=== PATIENT | female | born 1940 ===

== ENCOUNTER → 2019-08-06 | Outpatient (CLI) | payer MEDICARE, BC, SELFPAY | PROVIDERS: Family Provider Family Medicine; Visit Provider Internal Medicine Medical Oncology | DX: Z08 Encounter for follow-up examination after completed treatment for malignant neoplasm (principal); Z85.3 Personal history of malignant neoplasm of breast; Z90.12 Acquired absence of left breast and nipple; Z92.3 Personal history of irradiation; Z92.23 Personal history of estrogen therapy | CPT/HCPCS: 77065; 80053; 85025; 99213 ==

== ENCOUNTER → 2020-07-09 11:01 | Outpatient (BNVA) | payer MEDICARE, BC, SELFPAY | PROVIDERS: Family Provider Family Medicine; PCP Family Medicine; Visit Provider Family Medicine | DX: E11.9 Type 2 diabetes mellitus without complications (principal); F41.9 Anxiety disorder, unspecified; I10 Essential (primary) hypertension | CPT/HCPCS: 80053; 83036; 85025 ==

== ENCOUNTER 2020-08-11 09:41 | Outpatient (CLI) | payer MEDICARE, BC, SELFPAY ==
--- NOTE | 2020-08-11 09:51 | MM_ITS ---
WS: [id number] RIGHT DIGITAL MAMMOGRAPHY WITH CAD CLINICAL INFORMATION: HX OF BREAST CA;LT MAST COMPARISON: TECHNIQUE: 3 views of the right breast were obtained. FINDINGS: The right breast is composed of heterogeneous fibroglandular density tissue, which can limit the dete ction of small underlying mass lesions. No suspicious focal mass, asymmetry, calcifications, or architectural distortion. No evidence of qian gnancy. A few punctate and vascular calcifications. MM/[place] [id number] IMPRESSION: BI-RADS: 2-Benign FOLLOW UP: 1 Year Follow-up Recommend return to annual diagnostic mammography.
[2020-08-11 10:13] LABS: Basophils # 0.1 10^3/uL (0.0-0.1); Basophils % 0.8 %; Eosinophils # 0.2 10^3/uL (0.0-0.8); Hematocrit 43.9 % (37.0-47.0); Hemoglobin 14.1 g/dL (11.5-15.3); Lymphocytes # 2.5 10^3/uL (0.8-4.8); Lymphocytes % 34.3 %; Mean Corpuscular HGB Conc 32.1 g/dL (30.0-36.0); Mean Corpuscular Hemoglobin 28.4 pg (28.0-34.0); Mean Corpuscular Volume 88.5 fL (81-99); Mean Platelet Volume 12.2 fL (7.4-10.4); Monocytes # 0.5 10^3/uL (0.2-0.9); Monocytes % 6.5 %; Neutrophils # 4.06 10^3/uL (1.8-7.7); Neutrophils % 55.1 %; Nucleated Red Blood Cells % 0 %; Platelet Count 176 10^3/cmm (130-400); Red Blood Count 4.96 10^6/uL (4.1-5.3); Red Cell Distribution Width 12.7 % (12.1-15.1); White Blood Count 7.4 10^3/uL (4.0-10.0)
[2020-08-11 10:32] LABS: Alanine Aminotransferase 21 U/L (0-33); Albumin Level 4.1 g/dL (3.5-5.2); Alkaline Phosphatase 70 IU/L (35-105); Anion Gap 16.5 (5-19); Aspartate Amino Transferase 20 U/L (0-32); Blood Urea Nitrogen 18 mg/dL (8-23); Calcium 9.9 mg/dL (8.5-10.5); Carbon Dioxide 30 mmol/L (22-29); Chloride 98 mmol/L (98-107); Globulin 2.7 g/dL (1.3-4.6); Glucose 339 mg/dL (65-115); Osmolality Calculated 305 mOsm/kg (285-295); Potassium 4.5 mmol/L (3.5-5.1); Sodium 140 mmol/L (136-145); Total Bilirubin 0.3 mg/dL (0.15-1.2); Total Protein 6.8 g/dL (6.6-8.7)
--- NOTE | 2020-08-15 16:16 | ONC FU_ITS ---
Dr. Villatoro Patient Follow-Up Note Patient: Lela Joaquin Unit #: [id number]: 1940 Dicatated By: Manuel Villatoro M.D.Date of Visit:Aug 11, 2020 Onc Med Follow-up/Prog Note Chief Complaint: Breast cancer. 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 She underwent left modified radical mastectomy in August of 2007. The primary tumor was at least 6 cm. There was involvement in 3 of 6 axillary lymph nodes. She did not want adjuvant chemotherapy, and she also declined prophylactic chest wall radiation. She had started adjuvant hormonal therapy with Femara, but it was stopped after short time due to side effects. Treatment was then changed to tamoxifen as of December 2007. It was stopped after completing 5 years of treatment. She had a yearly mammogram of the left breast on 02/16/2016. It showed increasing asymmetry and soft tissue in the central portion of the right breast. There was no architectural distortion noted and there were no suspicious calcifications. It was read as BI-RADS 0. She returned for additional mammogram imaging and ultrasound, which was read as BI-RADS 4C, high suspicion for malignancy. She underwent ultrasound directed biopsy on 04/19/2016. Pathology showed fibrocystic changes with blunt duct adenosis. There was no tumor or significant atypia identified. She continued on observation/expectant management. Her subsequent surveillance mammograms in April 2017 and in July 2018 were BI-RADS 2, benign, with yearly followup recommended. She has chronic back pain due to long-standing degenerative disease of the spine. This has severely restricted her activity. Her other medical illnesses include hypertension and type II diabetes. She also has chronic anxiety. Her other surgeries have been limited to removal of a benign lesion from the right breast in 1985 and a D&C in 1992. She is a nonsmoker. Family history significant in that a sister was also treated for breast cancer. She is seen for a scheduled visit. She has been feeling pretty good generally, though she still has very limited activity due to her headaches and low back pain. She also has been having issues with high blood sugar. Her medication was recently changed to Januvia, but she says her blood sugars have still been high. She has no other significant complaints. Medications: Januvia 1 Tablet (of 50 mg) Oral daily, Quinapril HCl 1 (40 mg) Tablet Oral daily, Triavil 1 (2-10 mg) Tablet at bedtime, Ziac 1 (10-6.25 mg) Tablet Oral daily Allergies: No Known Allergies. Vital Signs: Performed on Aug 11, 2020 11:21 Height - 68.00 in Weight - 213 lbs (LOW) BSA - 2.10 sq.m BMI - 32.39 (HIGH) Temperature - 96.5 F (LOW) Pulse - 73 /min Respiration - 18 /min BP - 162/82 mm(hg) (HIGH) O2 Sat - 95 % (LOW) Pain - 0 Fatigue - 0 Physical Examination: Constitutional - She has limited mobility, Eyes - Sclerae nonicteric. Conjunctivae clear, ENMT - No lesions noted in the oral cavity, Hematologic/Lymphatic - No cervical or clavicular adenopathy, Respiratory - Lungs are clear with good air movement bilaterally, Cardiovascular - Heart rhythm is regular. There is no murmur, gallop, or rub noted, Breasts - There are areas of cheloid formation in the right breast and in the left chest wall. The right breast shows no mass. There are other no lesions noted in the left chest wall. There is no axillary adenopathy noted, Abdomen - Soft. Liver and spleen are not enlarged. There is no abdominal mass or ascites noted and there is no inguinal adenopathy, Extremities - No edema, Neurologic - There are no focal neurologic deficits noted. Lab/Imaging: Test performed on Aug 11, 2020 10:06 Sodium 140 mmol/L Potassium 4.5 mmol/L Chloride 98 mmol/L CO2 30 mmol/L Anion Gap 16.5 BUN 18 mg/dL Creatinine 0.9 mg/dL Cr Clearance (Est) 79.84 mL/min Glucose 339 mg/dL Osmolality - Calculated 305 mOsm/kg Calcium 9.9 mg/dL Protein, Total 6.8 g/dL Albumin 4.1 g/dL Globulin 2.7 g/dL Bilirubin, Total 0.3 mg/dL ALT (SGPT) 21 U/L AST (SGOT) 20 U/L Alkaline Phosphatase 70 IU/L WBC 7.4 10 3/uL RBC 4.96 10 6/uL HGB 14.1 g/dL HCT 43.9 % MCV 88.5 fL MCH 28.4 pg MCHC 32.1 g/dL RDW 12.7 % Platelet Count 176 10 3/cmm MPV 12.2 fL Neutrophils 4.06 10 3/uL Lymphocytes 2.5 10 3/uL Monocytes 0.5 10 3/uL Eosinophils 0.2 10 3/uL Basophils 0.1 10 3/uL Neutrophil % 55.1 % Lymphocyte % 34.3 % Monocyte % 6.5 % Eosinophil % 3.0 % Basophils % 0.8 % NRBC % 0 % Historic Problem List: 1. Patient has grade 3 infiltrating ductal carcinoma the left breast, stage IIIA, ER/NY positive and HER-2/benji negative. Her treatment included left modified radical mastectomy in August 2007 followed by 5 years of adjuvant hormonal therapy with tamoxifen. She declined both chemotherapy and prophylactic chest wall radiation. Her other medical illnesses include: 2. Hypertension. 3. Type II diabetes. 3. Degenerative disease of the spine with chronic back pain. 4. Chronic anxiety. Problems Addressed with this Encounter and Plan: 1. Grade 3 infiltrating ductal carcinoma the left breast, stage IIIA, ER/NY positive and HER-2/benji negative. There has been no evidence of recurrence following left modified radical mastectomy in August 2007 and adjuvant hormonal therapy. She remains on observation/expectant management for the breast cancer. At this point she can just continue her regular follow-up with Dr. Navas. I will plan to see her again only as needed. 2. Abnormal mammogram. In April 2016 she underwent ultrasound directed biopsy of the right breast for a suspicious mammogram, but pathology was benign, and she continued on oservation/expectant management. Her subsequent surveillance mammograms have been BI-RADS 2, benign. She is aware that she needs to continue her yearly mammograms. Signed By: Manuel Villatoro M.D. <<Signature on File>>
== END 2020-08-11 09:42 | disposition home or self-care (01) ==
PROVIDERS: Family Provider Family Medicine; PCP Family Medicine; Visit Provider Internal Medicine Medical Oncology
DX: Z08 Encounter for follow-up examination after completed treatment for malignant neoplasm (principal); Z85.3 Personal history of malignant neoplasm of breast; I10 Essential (primary) hypertension; E11.9 Type 2 diabetes mellitus without complications; M19.90 Unspecified osteoarthritis, unspecified site; F41.9 Anxiety disorder, unspecified; Z90.12 Acquired absence of left breast and nipple; Z92.23 Personal history of estrogen therapy
CPT/HCPCS: 36415; 77065; 80053; 85025; G0463

== ENCOUNTER 2021-07-30 07:52 | Outpatient (CLI) | payer MEDICARE, BC, SELFPAY ==
--- NOTE | 2021-07-30 08:15 | CT_ITS ---
WS: [id number] CT HEAD TECHNIQUE: Noncontrast CT of the head obtained from the skullbase to the vertex. CLINICAL INFORMATION: left sided numbness/dysarthria COMPARISON: None. DLP: 1253.[address] scans at [facility] use at least one of these dose optimization techniques: automated e xposure control; mA and/or kV adjustment per patient size (includes targeted exams where dose is matc hed to clinical indication); or iterative reconstruction. FINDINGS: No evidence of intracranial hemorrhage or mass effect. Ventricular system and basal cisterns are kaufman nt. Mild small vessel changes with moderate parenchymal volume loss. No extra-axial fluid collections . No evidence of mass or mass effect. Normal mcintyre-white differentiation. Intracranial vascular calcif ication. Paranasal sinuses and mastoid air cells are well aerated. .Normal visualized soft tissues. CT/CT head wo con* [id number] IMPRESSION: 1. No evidence of intracranial hemorrhage or mass effect. 2. Mild small vessel changes. Moderate parenchymal volume loss. 3. No acute intracranial findings.
== END 2021-07-30 07:53 | disposition home or self-care (01) ==
PROVIDERS: PCP Family Medicine; Visit Provider Family Medicine
DX: I63.9 Cerebral infarction, unspecified (principal); R53.1 Weakness; R47.1 Dysarthria and anarthria
CPT/HCPCS: 70450

== ENCOUNTER → 2021-08-04 11:37 | Outpatient (BNVA) | payer MEDICARE, BC, SELFPAY | PROVIDERS: PCP Family Medicine; Visit Provider Family Medicine | DX: E11.9 Type 2 diabetes mellitus without complications (principal); I10 Essential (primary) hypertension | CPT/HCPCS: 80053; 83036; 85025 ==

== ENCOUNTER 2021-08-19 13:24 | Outpatient (CLI) | payer MEDICARE, BC, SELFPAY ==
--- NOTE | 2021-08-19 13:34 | MM_ITS ---
WS: [id number] RIGHT DIGITAL MAMMOGRAPHY WITH CAD CLINICAL INFORMATION: HX OF BREAST CA;LT MASTECTOMY HISTORY: History of left mastectomy COMPARISON: August 11, 2020, , . TECHNIQUE: 3 views of the right breast were obtained. FINDINGS: The right breast is composed of heterogeneous fibroglandular density tissue, which can limit the dete ction of small underlying mass lesions. A few incidental punctate calcifications. Vascular calcificat ion. Nodular right breast tissue with a few ovoid asymmetries is unchanged. No suspicious focal mass, asymmetry, calcifications, or architectural distortion. No evidence of qian gnancy. MM/[place] [id number] IMPRESSION: BI-RADS: 2-Benign FOLLOW UP: 1 Year Follow-up Recommend return to annual diagnostic mammography.
== END 2021-08-19 13:25 | disposition home or self-care (01) ==
PROVIDERS: PCP Family Medicine; Visit Provider Internal Medicine Medical Oncology
DX: Z85.3 Personal history of malignant neoplasm of breast (principal); Z90.12 Acquired absence of left breast and nipple
CPT/HCPCS: 77065

== ENCOUNTER 2021-12-11 16:53 | Emergency (ER) | payer MEDICARE, BC, OTHER, SELFPAY ==
[2021-12-11 18:00] VITALS: BP 120/82; PULSE 93; RESP 22; O2SAT 95
--- NOTE | 2021-12-11 18:17 | CTR_ITS ---
PROCEDURE INFORMATION: Exam: CT Head Without Contrast Exam date and time: 12/11/2021 6:35 PM Age: 81 years old Clinical indication: Numbness / parasthesia; Left; Patient HX: C/O AVILES, dizziness and L sided numbness; Additional info: Headache with left sided numbess TECHNIQUE: Imaging protocol: Computed tomography of the head without contrast. Radiation optimization: All CT scans at this facility use at least one of these dose optimization techniques: automated exposure control; mA and/or kV adjustment per patient size (includes targeted exams where dose is matched to clinical indication); or iterative reconstruction. COMPARISON: CT head wo con* [id number] 07/30/2021 8:19 AM RADIATION DOSE METRICS: Total DLP (mGy-cm): 811.51 FINDINGS: Brain: Small subacute to chronic changes are seen in the posterolateral right frontal lobe. Mild atrophy and mild white matter chronic microvascular changes are noted. No hemorrhage or midline shift. Cerebral ventricles: No ventriculomegaly. Paranasal sinuses: Visualized sinuses are unremarkable. No fluid levels. Mastoid air cells: Visualized mastoid air cells are well aerated. Bones/joints: Unremarkable. No acute fracture. Soft tissues: Unremarkable. 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 Consider MRI of the brain for further assessment.
--- NOTE | 2021-12-11 18:19 | ED_ITS ---
HPI - General Adult General: Chief complaint: General Medical Stated complaint: HEADACHE Time Seen by Provider: 12/11/21 18:07 Source: patient and family (Spouse) Mode of arrival: ambulatory Limitations: no limitations History of Present Illness: This patient comes to the emergency department because of subjective feeling of general weakness. She also relates that she has had headaches for what she thinks is approximately 50 years. She states that 6 months ago or so she developed what she perceives as subjective left facial and left hand numbness without any motor dysfunction. She had a CT scan at that time which showed no acute process. She states that she continues to have the numbness and she thinks its perhaps worse. She also relates that she is globally weak. She denies any fevers or chills. She denies any focal motor weakness. She denies any difficulty with speech. She denies change in vision, jaw claudication etc. She denies any fevers or chills chest pain shortness of breath. She states she takes antihypertensive medications. She denies history of diabetes (review of her chart reveals she has diabetes and her problem list however). she does not smoke tobacco or use alcohol. The headaches are described as generalized and associated was vague lancinating kinds of pains. She states that they bother her at night as well as during the day. She has never been treated for these headaches with any kind of medications. No recent acute illnesses. Associated symptoms: Reports headache(s); Deny chest pain, dyspnea, nausea, rash, palpitations or vomiting Review of Systems Const: Reports: fatigue; Denies: fever(s), chills, body aches, change in appetite or change in weight Eyes: Denies: change in vision, blurry vision or blind spots ENMT: Denies: throat pain or odynophagia Card: Reports: swelling of feet/ankles; Denies: chest pain, palpitations or irregular heart rhythm Resp: Denies: dyspnea, productive cough, non-productive cough or wheezing GI: Denies: abdominal pain, nausea or vomiting : Denies: flank pain, difficulty voiding, dysuria or urinary frequency Musc: Denies: neck pain, back pain, extremity pain or joint pain Skin/Breast: Denies: rash or pruritus Neuro: Reports: headache(s) and numbness in extremities; Denies: frequent falls, Slurred speech present or seizure-like activity Psych: Denies: anxiety Endo: Denies: polyuria or polydipsia Eric/Lymph: Denies: easy bruising or easy bleeding PFS ED PFSH: Medical History Anxiety Diabetes mellitus Hypertension Social History Smoking and tobacco status: never smoked Alcohol intake: never Physical Exam Narrative: EXAM NARRATIVE: She is alert no acute distress lying what appears to be comfortably on the examining bed. She makes good eye contact. Her speech is generally goal-directed. Her affect is somewhat flat however. Const: COMMON NORMALS: patient oriented x3 and alert GENERAL APPEARANCE: cooperative and comfortable HENMT: COMMON NORMALS: normocephalic and atraumatic HEAD & SCALP: normocephalic and atraumatic; no scalp tenderness and no Temporal artery tenderness present FACE & SINUS: normal facial exam; sinuses not nontender Eye: COMMON NORMALS: Equal, round and reactive pupils present, EOMs intact bilaterally and conjunctivae normal CONJUNCTIVA: Yes conjunctivae normal P UPIL: Yes Equal, round and reactive pupils present Neck/C-Spine: COMMON NORMALS: full ROM, no lymphadenopathy, supple, no meningeal signs and no JVD CERVICAL SPINE: Yes cervical ROM normal, No Cervical spine tenderness and No Paracervical muscle tenderness Chest: COMMONS NORMALS: normal inspection of the chest Resp: COMMON NORMALS: normal respiratory effort, No retractions, No use of accessory muscles and clear to auscultation bilaterally AUSCULTATION: clear to auscultation bilaterally Cardio: COMMON NORMALS: no JVD, regular rate, regular rhythm, No murmurs present (Cardio) and Peripheral pulses 2+ throughout RATE: regular rate RHYTHM: regular rhythm PERIPHERAL PULSES: Peripheral pulses 2+ throughout GI: COMMON NORMALS: Normal to inspection, nondistended, normoactive bowel sounds present and Soft to palpation PALPATION: Yes Soft to palpation : COMMON NORMALS: Yes no CVA tenderness BLADDER/KIDNEY EXAM: Yes no CVA tenderness Back/Pelvis: COMMON NORMALS: no CVA tenderness, thoracic and lumbar spine normal to inspection, no thoracic nor lumbar tenderness, thoraco-lumbar ROM normal and straight leg raise negative bilaterally Extremity: COMMON NORMALS: normal to inspection, capillary refill normal, no joint enlargement, no calf tenderness and no pedal edema Neuro: COMMON NORMALS: patient oriented x3, moves all extremities, no focal motor deficits and no sensory deficits noted SENSORIUM/ORIENTATION: Yes alert MENINGEAL SIGNS: Yes no meningeal signs SPEECH: speech normal MOTOR EXAM: Pronator motor function not present and Motor abnormalities not present Psych: COMMON NORMALS: mental status grossly normal, Normal thought process p resent and speech normal ATTITUDE: Yes calm SPEECH: Yes normal speech THOUGHT PROCESS: Normal thought process present Skin: COMMON NORMALS: no rashes or lesions noted, no wounds and turgor normal GENERAL SKIN EXAM: no rashes or lesions noted and turgor normal Course Reevaluation(s): Reevaluation #1: CT scan results noted. She may have had a very small infarct sometime after July when apparently her CT was normal at that time. Certainly it could have been very occult and not shown up due to his small size. She has no focal weakness on her clinical examination other than subjective altered sensation in her left arm and face. I discussed findings with patient and spouse as well as what appears to be her daughter as well. I am also concerned that some of her of generalized fatigue that concerns the may be related to depression due to her chronic headaches as well as what is related to me is a recent il lness in the last couple weeks when she did not eat or drink well for several days and she does not seem to think she is bounced back from that. We explored COVID-19 testing etc.(they were not inclined to do so) Time: 20:26 Reevaluation #2: The patient did ambulate and stated that she would feel much more comfortable she had a walker. We will make sure that we can provide her a walker to assist in her activities of daily living. Again no reasons for acute hospitalization at this time I think we can continue to monitor and treat her effectively at home with her family and primary care doctor involved. We will go ahead and start her on 81 mg of aspirin today for stroke prevention as well as a statin in secondary prevention. We will have her follow-up with her primary care doctor in the next 7 to 10 days for reevaluation, determination of any additional testing such as other ancillary testing for primary etiology of a possible stroke etc. we will also give her a trial course of tizanidine to take at bedtim e to help with her headaches Time: 21:21 Vital Signs: Vital signs: Vital Signs Pulse Rate 91 12/11/21 20:44 Respiratory Rate 18 12/11/21 20:44 Blood Pressure 144/106 12/11/21 20:44 Pulse Oximetry 92 12/11/21 20:44 MDM - General Adult Medical Decision Making This patient with a history of approximately 6 months of left facial and upper extremity alteration sensation without weakness with a history of a normal CT so metime in July of last year. She also has a history of a recent what sounds like a viral type illness which she is not completely recovered from his left her feeling, generalized weakness. She states she is been eating and drinking. She denies any focal weakness and was has a longstanding history of chronic headaches. She was evaluated in the emergency department and found to have a remote very tiny small right frontal infarct that may be responsible for some of her physical symptoms but certainly is not a candidate for any intervention acutely at this time. We will institute secondary prevention of low-dose aspirin as well as a statin. She was provided with a walker to help with her physical debility and reconditioning. Does not seem to cover indicate giant cell arteritis,, trigeminal neuralgia but certainly could be suboccipital neuralgia etc. She is been directed to follow-up with her primary care doctor for continued evaluation and care. We also discussed return precautions with both she and her spouse and daughter. 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 Consider MRI of the brain for further assessment. Laboratory Results WBC 12.3 10^3/uL (4.0-10.0) H 12/11/21 19: RBC 3.93 10^6/uL (4.1-5.3) L 12/11/21 19: Hgb 12.1 g/dL (11.5-15.3) 12/11/21: Hct 36.7 % (37.0-47.0) L 12/11/21: MCV 93.4 fl (81-99) 12/11/21 19: MCH 30.8 pg (28.0-34.0) 12/11/21 19: MCHC 33.0 g/dL (30.0-36.0) 12/11/21 19: RDW 14.2 % (12.1-15.1) 12/11/21 19: Plt Count 140 10^3/cmm (130-400) 12/11/21 19: MPV 12.0 fL (7.4-10.4) H 12/11/21 19:22 Neut % (Auto) 84.6 % 12/11/21 19: Lymph % (Auto) 6.2 % 12/11/21 19: Kings % (Auto) 8.3 % 12/11/21 19: Eos % (Auto) 0.1 % 12/11/21 19: Baso % (Auto) 0.2 % 12/11/21: Neut # (Auto) 10.37 10^3/uL (1.8-7.7) H 12/11/21: Lymph # (Auto) 0.8 10^3/uL (0.8-4.8) 12/11/21: Kings # (Auto) 1.0 10^3/uL (0.2-0.9) H 12/11/21: Eos # (Auto) 0.0 10^3/uL (0.0-0.8) 12/11/21: Baso # (Auto) 0.0 10^3/uL (0.0-0.1) 12/11/21: Nucleated RBC % (auto) 0 % 12/11/21: Nucleated RBCs # 0.0 /100WBC 12/11/21: ESR 18 mm/hr (0-15) H 12/11/21 19: Sodium 135 mmol/L (136-145) L 12/11/21 19: Potassium 4.1 mmol/L (3.5-5.1) 12/11/21 19: Chloride 97 mmol/L (98-107) L 12/11/21 19: Carbon Dioxide 25 mmol/L (22-29) 12/11/21 19: Anion Gap 17.1 (5-19) 12/11/21 19:22 BUN 23 mg/dL (8-23) 12/11/21 19: Creatinine 1.0 mg/dL (0.5-0.9) H 12/11/21 19:22 GFR Calculation Not Reportable 12/11/21 19:22 Glucose 229 mg/dL (65-115) H 12/11/21 19:22 Calculated Osmolality 291 mOsm/kg (285-295) 12/11/21 19:22 Calcium 9.7 mg/dL (8.5-10.5) 12/11/21 19: TSH 1.06 uIU/mL (0.27-4.20) 12/11/21 19:22 Discharge Plan Discharge Patient Disposition: Home Clinical Impression: Diabetes mellitus, Physical deconditioning, CVA, old, alterations of sensations Condition: Stable Prescriptions: New rosuvastatin 20 mg tablet 20 mg PO DAILY Qty: 30 0RF tizanidine 2 mg capsule 2 mg PO BEDTIME PRN (Reason: muscle spasticity) Qty: 20 0RF No Action lorazepam 1 mg tablet 1 mg PO DAILY PRN (Reason: anxiety) Qty: 4 0RF amitriptyline 10 mg tablet 10 mg PO DAILY Qty: 90 1RF perphenazine 2 mg tablet 2 mg PO DAILY Qty: 90 1RF fluorouracil [Efudex] 5 % cream 1 applic topical BID 0RF Rx Instructions: apply sufficient amount to cover all lesions pioglitazone 30 mg tablet See Rx Instructions .ROUTE .COMPLEX Qty: 90 1RF Dose Instruction: TAKE 1 TABLET BY MOUTH EVERY DAY Rx Instructions: TAKE 1 TABLET BY MOUTH EVERY DAY quinapril 40 mg tablet 40 mg PO DAILY Qty: 90 2RF bisoprolol-hydrochlorothiazide 10-6.25 mg tablet See Rx Instructions .ROUTE .COMPLEX Qty: 90 2RF Dose Instruction: TAKE 1 TABLET BY MOUTH EVERY DAY Rx Instructions: TAKE 1 TABLET BY MOUTH EVERY DAY potassium chloride 20 mEq tablet extended release 20 meq PO DAILY Qty: 90 2RF furosemide 20 mg tablet 20 mg PO BID 90 Days Qty: 180 0RF Discharge Orders: Discharge ED (Routine); Ordered 12/11/21 Ordered By: Ubaldo Clements Other Ambulatory Orders: DME: [facility] (Order) Location: None Selected Ordered By: Ubaldo Clements Referrals: Nahomy Navas MD [Primary Care Provider] - 7-10 days (Follow-up from ED visit) Discharge Diet: Usual diet and Diabetic Discharge Activity: Increase activity as tolerated and Use walker/crutches as instructed Activity Restrictions/Additional Instructions: Take all your usual medications. In addition start taking 81 mg of enteric- coated aspirin daily. We have provided a prescription to help lower cholesterol regarding stroke prevention as well as tizanidine to help with your nighttime headaches. Follow-up with your doctor in the next 7 to 10 days. You develop any new or worsening symptoms return to this or the nearest emergency department. Coding Level of Care Code ED Senior Credit Officer for [employer] [facility] Exam Comprehensive
[2021-12-11 19:32] LABS: Basophils % 0.2 %; Eosinophils % 0.1 %; Hematocrit 36.7 % (37.0-47.0); Hemoglobin 12.1 g/dL (11.5-15.3); Lymphocytes # 0.8 10^3/uL (0.8-4.8); Lymphocytes % 6.2 %; Mean Corpuscular Hemoglobin 30.8 pg (28.0-34.0); Mean Corpuscular Volume 93.4 fl (81-99); Monocytes % 8.3 %; Neutrophils # 10.37 10^3/uL (1.8-7.7); Neutrophils % 84.6 %; Nucleated Red Blood Cells % 0 %; Platelet Count 140 10^3/cmm (130-400); Red Blood Count 3.93 10^6/uL (4.1-5.3); Red Cell Distribution Width 14.2 % (12.1-15.1); White Blood Count 12.3 10^3/uL (4.0-10.0)
[2021-12-11 19:44] LABS: Erythrocyte Sedimentation Rate 18 mm/hr (0-15)
[2021-12-11 20:04] LABS: Anion Gap 17.1 (5-19); Blood Urea Nitrogen 23 mg/dL (8-23); Calcium 9.7 mg/dL (8.5-10.5); Carbon Dioxide 25 mmol/L (22-29); Chloride 97 mmol/L (98-107); Glucose 229 mg/dL (65-115); Osmolality Calculated 291 mOsm/kg (285-295); Potassium 4.1 mmol/L (3.5-5.1); Sodium 135 mmol/L (136-145); Thyroid Stimulating Hormone 1.06 uIU/mL (0.27-4.20)
[2021-12-11 20:44] VITALS: BP 144/106; PULSE 91; RESP 18; O2SAT 92
== END 2021-12-11 21:53 | disposition home or self-care (01) ==
PROVIDERS: Emergency Provider Emergency Medicine; PCP Family Medicine
DX: I69.398 Other sequelae of cerebral infarction (principal); E11.9 Type 2 diabetes mellitus without complications; F41.9 Anxiety disorder, unspecified; I10 Essential (primary) hypertension
CPT/HCPCS: 70450; 80048; 84443; 85025; 85651; 99283

== ENCOUNTER 2021-12-13 15:58 | Observation (INO) | payer MEDICARE, BC, OTHER, SELFPAY ==
[2021-12-13 16:00] VITALS: BP 140/54; PULSE 85; RESP 18; TEMP 37.3; O2SAT 94
--- NOTE | 2021-12-13 16:18 | ED_ITS ---
HPI - General Adult General: Chief complaint: Weakness Stated complaint: Nausia, Weakness Time Seen by Provider: 12/13/21 16:07 History of Present Illness: Patient is a 81-year-old female with a history of diabetes, hypertension presenting to the emergency room for concerns of general ized weakness, nausea since discharge from hospital on Tuesday. Patient was initially seen on Tuesday for concerns of left arm and face numbness which patient says that has been going on for the last [address] scan from Tuesday showed possible subacute to chronic stroke. Patient at that time has no focal neurological weakness was discharged home with close follow-up with PCP. Patient has not been to see any provider. Patient tells me that she continues to have generalized weakness with left hand and left face numbness. Patient denies any focal weakness since Tuesday. Patient denies any facial droop, slurring of speech, language or word finding difficulty, double vision, weakness in the arms or legs. Patient in addition denies any chest pain shortness breath or palpitation lightheadedness nausea/vomiting, melena or hematochezia. Patient reports that she has been having chronic diarrhea for the last 3 to 4 weeks and has had decreased p.o. intake. Diarrhea symptoms has been going on for 1 day. Patient denies any recent travels, recent sick contact, recent antibiotic use. Onset:3-4 weeks mckeon Duration:3-4 weeks Location:home Severity:moderate Associated symptoms: Reports malaise; Deny chest pain, dyspnea, nausea, rash, palpitations or vomiting Review of Systems Const: Reports: malaise and other (+generalized weakness); Denies: fever(s) or chills Eyes: Denies: change in vision ENMT: Denies: mouth pain Card: Denies: chest pain or palpitations Resp: Denies: dyspnea or non-productive cough GI: Reports: diarrhea and other (+decreased PO intake); Denies: abdominal pain, nausea or vomiting : Denies: dysuria Musc: Denies: extremity pain Skin/Breast: Denies: rash or new lesions Neuro: Denies: weakness in extremities Psych: Reports: other (Normal mood) Eric/Lymph: Denies: easy bruising PFS ED PFSH: Medical History Anxiety Diabetes mellitus Hypertension Surgical History History of mastectomy, total Family History Sister Breast cancer Social History Smoking and tobacco status: never smoked Alcohol intake: never Substance/Drug Use: never Physical Exam Const: COMMON NORMALS: alert HENMT: COMMON NORMALS: atraumatic HEAD & SCALP: atraumatic MOUTH: moist mucous membranes not abnormal Eye: COMMON NORMALS: EOMs intact bilaterally and conjunctivae normal CONJUNCTIVA: Yes conjunctivae normal Neck/C-Spine: COMMON NORMALS: full ROM and supple Resp: COMMON NORMALS: normal respiratory effort and clear to auscultation bilaterally AUSCULTATION: clear to auscultation bilaterally Cardio: COMMON NORMALS: regular rate RATE: regular rate OTHER: 2+ radial pulses b/l GI: COMMON NORMALS: Soft to palpation and non-tender PALPATION: Yes Soft to palpation OTHER: No focal TTP. NO guarding rebound, guarding, rigidity. No CVA tenderness to percussion. Neg Swan/Neg McBurney's point tenderness, no suprabupic tenderness to palpation. Extremity: COMMON NORMALS: full ROM OTHER: No LE swelling Neuro: SENSORIUM/ORIENTATION: Yes alert MOTOR EXAM: No Abnormal motor strength present and Other motor observations present (no focal motor deficits) OTHER: Mental status? Awake, alert, and oriented to self, year, month, location, and situation.? Following simple axial and appendicular commands.? Has appropriate fund of knowledge, comprehension, and insight.? Able to recall and understands pertinent aspects of medical history and current treatment status.? ? Language? Speech is fluent without word-finding difficulties.? Intact naming, expression, rn x ray, and repetition.? ? Cranial nerves? 2,3,4,6: PERRL, EOMI with no nystagmus. 5: Intact sensation to light touch, symmetric? 7: Smile symmetrical, no facial droop.? 8: Hearing grossly intact.? 9,10: Normal palate movement.? 11: Normal strength in trapezius bilaterally 12: Tongue protrudes midline.? ? Motor examination? Normal bulk & tone. Strength as follows (R/L): Delts (5/5), Biceps (5/5), Triceps (5/5), Wrist ext (5/5), hip flexors (5/5), plantarflexors (5/5), dorsiflexors (5/5). Sensation? Light Touch: Grossly intact and equal in upper and lower extremities bilaterally? Romberg: Negative.? Distal joint position sense intact ? Coordination? Heqswb-rc-lisa-finger movements intact without dysmetria or past-pointing.? Rapid fingertaps: preserved amplitude without decriment.? No tremor, myoclonus or truncal ataxia.? ? Gait/stance? Steady, normal narrow base gait with appropriate arm swing and turning.? Tandem gait without hesitation or loss of balance. Psych: COMMON NORMALS: speech normal SPEECH: Yes normal speech MOOD & AFFECT: Yes euthymic mood Course Vital Signs: Vital signs: Vital Signs Temperature 98.6 F 12/14/21 08:00 Pulse Rate 75 12/14/21 08:00 Respiratory Rate 12 12/14/21 08:00 Blood Pressure 135/71 12/14/21 08:00 Pulse Oximetry 95 12/14/21 08:00 [facility] - General Adult Medical Decision Making 81-year-old female with a history of diabetes, hypertension presenting to the emergency room after Tuesday for concerns of decreased p.o. intake, generalized weakness, persistent paresthesias in the setting of possible subacute stroke on CT scan. Is neurologically intact currently. Hemodynamically stable. Lab work-up showed a creatinine of 1.3. UA is consistent with possible UTI. Patient received ceftriaxone, and 1L fluid. Given concern for possible subacute stroke with SINA and UTI, patient will be admitted to hospital for rehydration, antibiotics, and MRI Disposition: admisison Lab Data : 12/14/21 04:00 12/14/21 04:00 Radiology Impressions Chest X-Ray 12/13/21 17:55 IMPRESSION: No obvious acute consolidation. Suboptimal lung base assessment. Followup including lateral view may be obtained if clinically indicated. Carotid Doppler Study 12/13/21 18:50 IMPRESSION: 1. Mild, less than 50%, bilateral ICA stenoses noted. 2. The vertebral arteries are patent, with antegrade flow direction bilaterally. REFERENCES: SRU CRITERIA. The degree of internal carotid artery stenosis is based on criteria defined by the Society of Radiologists in Ultrasound (SRU). Normal is no stenosis. Mild is less than 50% stenosis. Moderate is 50-69% stenosis. Severe is greater than 69% stenosis to near occlusion. Near occlusion is a markedly narrowed lumen. Total occlusion is no detectable patent lumen. Head CT 12/13/21 18:50 IMPRESSION: 1. No acute intracranial findings. 2. Other chronic findings as above. Lumbar Spine CT 12/13/21 18:50 IMPRESSION: 1. Mild scoliosis of the lumbar spine, convex to the right. 2. No lumbar compression fractures are noted. 3. Advanced degenerative disc changes are present at L1-L2, L2-L3, and L4-L5. No severe spinal canal stenosis at any lumbar level. Head MRI 12/14/21 07:35 IMPRESSION: 1. Patchy areas of acute ischemia within the RIGHT frontal and parietal lobes with a more focal area of acute ischemia at the RIGHT frontoparietal junction measuring 1.8 x 1.6 cm. 2. No significant mass effect or midline shift. 3. Mild small vessel changes with moderate parenchymal volume loss. 4. Chronic lacunar infarct in the ventral jennifer. Notified Dr. Mcarthur at 12/14/2021 9:25 AM. Laboratory Results WBC 9.7 10^3/uL (4.0-10.0) 12/13/21 17:00 RBC 3.72 10^6/uL (4.1-5.3) L 12/13/21 17:00 Hgb 11.4 g/dL (11.5-15.3) L 12/13/21 17:00 Hct 34.1 % (37.0-47.0) L 12/13/21 17:00 MCV 91.7 fl (81-99) 12/13/21 17:00 MCH 30.6 pg (28.0-34.0) 12/13/21 17:00 MCHC 33.4 g/dL (30.0-36.0) 12/13/21 17:00 RDW 14.4 % (12.1-15.1) 12/13/21 17:00 Plt Count 130 10^3/cmm (130-400) 12/13/21 17:00 MPV 12.6 fL (7.4-10.4) H 12/13/21 17:00 Neut % (Auto) 80.1 % 12/13/21 17:00 Lymph % (Auto) 11.5 % 12/13/21 17:00 [place] % (Auto) 7.5 % 12/13/21 17:00 Eos % (Auto) 0.2 % 12/13/21 17:00 Baso % (Auto) 0.3 % 12/13/21 17:00 Neut # (Auto) 7.76 10^3/uL (1.8-7.7) H 12/13/21 17:00 Lymph # (Auto) 1.1 10^3/uL (0.8-4.8) 12/13/21 17:00 [place] # (Auto) 0.7 10^3/uL (0.2-0.9) 12/13/21 17:00 Eos # (Auto) 0.0 10^3/uL (0.0-0.8) 12/13/21 17:00 Baso # (Auto) 0.0 10^3/uL (0.0-0.1) 12/13/21 17:00 Nucleated RBC % (auto) 0 % 12/13/21 17:00 Nucleated RBCs # 0.0 /100WBC 12/13/21 17:00 Sodium 136 mmol/L (136-145) 12/13/21 17:00 Potassium 3.7 mmol/L (3.5-5.1) 12/13/21 17:00 Chloride 96 mmol/L (98-107) L 12/13/21 17:00 Carbon Dioxide 27 mmol/L (22-29) 12/13/21 17:00 Anion Gap 16.7 (5-19) 12/13/21 17:00 BUN 27 mg/dL (8-23) H 12/13/21 17:00 Creatinine 1.3 mg/dL (0.5-0.9) H 12/13/21 17:00 GFR Calculation Not Reportable 12/13/21 17:00 Glucose 238 mg/dL (65-115) H 12/13/21 17:00 Estimat Average Glucose 169 12/13/21 17:00 Hemoglobin A1c 7.5 % (4.0-6.0) H 12/13/21 17:00 Calculated Osmolality 295 mOsm/kg (285-295) 12/13/21 17:00 Calcium 9.9 mg/dL (8.5-10.5) 12/13/21 17:00 Total Bilirubin 0.4 mg/dL (0.15-1.2) 12/13/21 17:00 AST 18 U/L (0-32) 12/13/21 17:00 ALT 14 U/L (0-33) 12/13/21 17:00 Alkaline Phosphatase 77 IU/L (35-105) 12/13/21 17:00 Troponin T Baseline 22 ng/L (0-10) H 12/13/21 17:00 NT-Pro-B Natriuret Pep 1074 pg/mL (0-450) H 12/13/21 17:00 Total Protein 7.1 g/dL (6.6-8.7) 12/13/21 17:00 Albumin 3.7 g/dL (3.5-5.2) 12/13/21 17:00 Globulin 3.4 g/dL (1.3-4.6) 12/13/21 17:00 Lipase 25 U/L (13-60) 12/13/21 17:00 TSH 1.40 uIU/mL (0.27-4.20) 12/13/21 17:00 Urine Color Straw (Yellow) 12/13/21 17:10 Urine Appearance Sl hazy (CLEAR) 12/13/21 17:10 Urine pH 5 (5-7) 12/13/21 17:10 Ur Specific [place] 1.015 (1.005-1.030) 12/13/21 17:10 Urine Protein Neg (Negative) 12/13/21 17:10 Urine Glucose (UA) 1+ (Normal) H 12/13/21 17:10 Urine Ketones Negative (Negative) 12/13/21 17:10 Urine Blood 3+ (Negative) H 12/13/21 17:10 Urine Nitrate Positive (Negative) H 12/13/21 17:10 Urine Bilirubin Neg (Negative) 12/13/21 17:10 Urine Urobilinogen Norm mg/dL (Negative) 12/13/21 17:10 Ur Leukocyte Esterase Trace (Negative) H 12/13/21 17:10 Urine RBC 5-10 /hpf (0-2) H 12/13/21 17:10 Urine WBC 15-25 /hpf (0-5) H 12/13/21 17:10 Ur Squamous Epith Cells 5-10 /hpf (0-5) H 12/13/21 17:10 Amorphous Sediment Not Reportable 12/13/21 17:10 Urine Bacteria 3+ /hpf (NONE) H 12/13/21 17:10 Discharge Plan Discharge Patient Disposition: Admitted As Inpatient Admit Provider: Evin Walter Clinical Impression: Dehydration, SINA (acute kidney injury), Acute UTI, Generalized weakness Condition: Stable Coding Level of Care Code ED Chocolatier for Chg Fwd Exam Comprehensive
[2021-12-13 17:03] VITALS: BP 126/98; PULSE 86; RESP 16; TEMP 37.4; O2SAT 95
[2021-12-13] MEDS: sodium chloride 0.9% 1,000 ML 999 ML IV (17:10)
[2021-12-13 17:14] LABS: Basophils % 0.3 %; Eosinophils % 0.2 %; Hematocrit 34.1 % (37.0-47.0); Hemoglobin 11.4 g/dL (11.5-15.3); Lymphocytes # 1.1 10^3/uL (0.8-4.8); Lymphocytes % 11.5 %; Mean Corpuscular HGB Conc 33.4 g/dL (30.0-36.0); Mean Corpuscular Hemoglobin 30.6 pg (28.0-34.0); Mean Corpuscular Volume 91.7 fl (81-99); Mean Platelet Volume 12.6 fL (7.4-10.4); Monocytes # 0.7 10^3/uL (0.2-0.9); Monocytes % 7.5 %; Neutrophils # 7.76 10^3/uL (1.8-7.7); Neutrophils % 80.1 %; Nucleated Red Blood Cells % 0 %; Platelet Count 130 10^3/cmm (130-400); Red Blood Count 3.72 10^6/uL (4.1-5.3); Red Cell Distribution Width 14.4 % (12.1-15.1); White Blood Count 9.7 10^3/uL (4.0-10.0)
[2021-12-13 17:27] LABS: Blood Urine 3+ (Negative); Glucose Urine UA 1+ (Normal); Ketones Urine Negative (Negative); Nitrate Urine Positive (Negative); Protein Urine Neg (Negative); Specific Gravity, Urine 1.015 (1.005-1.030); Urine Appearance SL Hazy (CLEAR); Urine Color Straw (Yellow); pH Urine 5 (5-7)
[2021-12-13 17:28] LABS: Add Urine Culture? Yes; Add Urine Microscopic? YES; Bacteria Urine 3+ /hpf; Bilirubin Urine Neg (Negative); Leukocyte Esterase Urine Trace (Negative); Urobilinogen Urine Norm (Negative); WBC Urine 15-25 /hpf (0-5)
[2021-12-13 17:37] LABS: Alanine Aminotransferase 14 U/L (0-33); Albumin Level 3.7 g/dL (3.5-5.2); Alkaline Phosphatase 77 IU/L (35-105); Blood Urea Nitrogen 27 mg/dL (8-23); Calcium 9.9 mg/dL (8.5-10.5); Carbon Dioxide 27 mmol/L (22-29); Chloride 96 mmol/L (98-107); Globulin 3.4 g/dL (1.3-4.6); Glucose 238 mg/dL (65-115); Lipase 25 U/L (13-60); Osmolality Calculated 295 mOsm/kg (285-295); Sodium 136 mmol/L (136-145); Total Bilirubin 0.4 mg/dL (0.15-1.2); Total Protein 7.1 g/dL (6.6-8.7); Troponin(5th) Baseline 22 ng/L (0-10)
[2021-12-13 17:51] LABS: Anion Gap 16.7 (5-19); Aspartate Amino Transferase 18 U/L (0-32); Potassium 3.7 mmol/L (3.5-5.1)
--- NOTE | 2021-12-13 17:55 | XRR_ITS ---
PROCEDURE INFORMATION: Exam: XR Chest Exam date and time: 12/13/2021 6:02 PM Age: 81 years old Clinical indication: Patient HX: C/O bilat rib pain; Additional info: R sided rib pain TECHNIQUE: Imaging protocol: XR of the chest. Views: 1 view. COMPARISON: No relevant prior studies available. FINDINGS: Lungs: The lung bases are suboptimally assessed due to technique however the upper lungs are clear of focal consolidation. Pleural spaces: Unremarkable. No pleural effusion. No pneumothorax. Heart/Mediastinum: Cardiac silhouette appears normal in size. No obvious vascular congestion. Bones/joints: No acute osseous findings. Other findings: Single view was submitted. XR/XR chest 1V portable [id number] IMPRESSION: No obvious acute consolidation. Suboptimal lung base assessment. Followup including lateral view may be obtained if clinically indicated.
--- NOTE | 2021-12-13 18:02 | ECG_ITS ---
[facility] Test Date: 2021-12-13 Pat Name: Lela Joaquin Department: Room: 275 Gender: Female Periodicals Clerk: : 1940 Requested By: Anoop Bishop Order Number: [id number] Pieter MD: Jessica Caban M.D. Measurements Intervals [place] Rate: 84 P: 64 [place]: 172 QRS: 26 QRSD: 87 T: 48 QT: 359 QTc: 425 Interpretive Statements SINUS RHYTHM LOW QRS VOLTAGE IN PRECORDIAL LEADS [QRS DEFLECTION < 1.0 mV IN CHEST LEADS] No previous ECG available for comparison Electronically Signed On 12-13-2021 22:50:40 CDT by Jessica Caban M.D. [id number]
[2021-12-13] MEDS: cefTRIAXone 1,000 MG in sodium chloride 0.9% (plus) 50 ML 100 MG IV (18:05)
[2021-12-13 18:30] VITALS: BP 121/68; PULSE 86; RESP 16; O2SAT 97
--- NOTE | 2021-12-13 18:35 | PM.HP ---
Providers/Chief Complaint Primary Care Provider: Nahomy Navas MD Chief Complaint: Nausia, Weakness History of Present Illness Lela Joaquin is a 81 year old female with a past medical history of hypertension, hyperlipidemia, noninsulin-dependent type 2 diabetes mellitus, history of breast cancer, recently presented to the emergency room on 12/11/2021 due to left facial numbness, left arm numbness, discharged home on aspirin and statin with follow-up primary care provider. Who presents to [facility] for persistence of left facial numbness, left arm numbness, slurring of her words, difficulty coordinating, with bilateral extremity weakness, nausea, increased confusion Patient tells her that she lives at home, she lives in her , at baseline she only ambulates to the bathroom, with some assistance, but she normally does not ambulate long distances, she requires assistance for activities of daily living, has chronic low back pain, which limits her movement. She tells me that for many months since at least June she has been having left hand numbness, she followed up with Dr. Navas and she had a CAT scan which did not have evidence. She tells me that over the last few months to weeks, the numbness progressively went from the left hand up to the left shoulder and now involving the left side of her face, no changes in her vision. She is also been noticing bilateral extremity weakness, increased trouble ambulating, increased lower back pain, and nausea. She came to the emergency room on 12/11/2021 was diagnosed with a stroke, sent home on aspirin, statin. However her numbness persists, but her family noticed that she is increasingly confused, having slurring of her words, slight left facial droop, trouble coordinating, family tells me that when she does ambulate with a walker he tends to veer off to the left. Here in the emergency room she was diagnosed with a UTI hospitalist team was called for admission. Current concerns for old versus new stroke. Currently patient is alert oriented x3, answers all questions appropriately, family at bedside. Review of Systems Const: Reports: fatigue and malaise; Denies: fever(s) Eyes: Denies: change in vision or blurry vision ENMT: Denies: nasal congestion Card: Reports: edema; Denies: chest pain or palpitations Resp: Denies: dyspnea, productive cough, non-productive cough or wheezing GI: Denies: abdominal pain, nausea, vomiting or diarrhea : Denies: flank pain or urinary frequency Musc: Reports: neck pain and back pain Skin/Breast: Denies: rash Neuro: Reports: numbness in extremities, weakness in extremities, sensory changes, lack of coordination, difficulty walking and confusion; Denies: dizziness Endo: Denies: polyuria or polydipsia Medications/Allergies Home Medications Medication Instructions Recorded Confirmed Last Taken Type fluorouracil 5 % topical cream 1 applic TOPICAL BID 07/09/20 08/04/21 Unknown History (Efudex) amitriptyline 10 mg tablet 10 mg PO DAILY #90 tab 06/16/21 08/04/21 Unknown Rx lorazepam 1 mg tablet 1 mg PO DAILY PRN #4 tab 06/16/21 08/04/21 Unknown Rx perphenazine 2 mg tablet 2 mg PO DAILY #90 tab 06/16/21 08/04/21 Unknown Rx bisoprolol 10 See Rx Instructions .ROUTE 08/04/21 08/04/21 Unknown Rx mg-hydrochlorothiazide 6.25 mg .COMPLEX #90 tab tablet pioglitazone 30 mg tablet See Rx Instructions .ROUTE 08/04/21 08/04/21 Unknown Rx .COMPLEX #90 tab quinapril 40 mg tablet 40 mg PO DAILY #90 tab 08/04/21 08/04/21 Unknown Rx potassium chloride 20 mEq 20 meq PO DAILY #90 tab 10/19/21 Unknown Rx tablet,extended release furosemide 20 mg tablet 20 mg PO BID 90 Days #180 tab 11/06/21 Unknown Rx rosuvastatin 20 mg tablet 20 mg PO DAILY #30 tab 12/11/21 Unknown Rx tizanidine 2 mg capsule 2 mg PO BEDTIME PRN #20 cap 12/11/21 Unknown Rx aspirin 81 mg chewable tablet 81 mg PO DAILY 12/13/21 12/13/21 12/13/21 History Allergies Allergy/AdvReac Type Severity Reaction Status Date / Time No Known Allergies Allergy Verified 12/13/21 16:03 PFSH Acute PFSH: Medical History Anxiety Diabetes mellitus Hypertension Surgical History History of mastectomy, total Family History Sister Breast cancer Social History Smoking and tobacco status: never smoked Alcohol intake: never Substance/Drug Use: never Vitals/I&O/Wt Last Vital Signs Temp 99.3 F 12/13/21 17:03 Pulse 86 12/13/21 17:03 Resp 16 12/13/21 17:03 BP 126/98 12/13/21 17:03 Pulse Ox 95 12/13/21 17:03 Weight last 48 hrs Weight 104.326 kg Physical Exam Const: COMMON NORMALS: no acute distress and patient oriented x3 HENMT: COMMON NORMALS: normocephalic HEAD & SCALP: normocephalic Eye: COMMON NORMALS: Equal, round and reactive pupils present, EOMs intact bilaterally and normal visual doyle by confrontation Neck/C-Spine: COMMON NORMALS: no JVD Lymph: LYMPHATIC: no lymphadenopathy noted Resp: COMMON NORMALS: normal respiratory effort, No retractions, No use of accessory muscles and clear to auscultation bilaterally AUSCULTATION: clear to auscultation bilaterally Cardio: COMMON NORMALS: no JVD, regular rate, regular rhythm, S1 normal heart sound present and S2 normal heart sound present RATE: regular rate RHYTHM: regular rhythm HEART SOUNDS: S1 normal heart sound present and S2 normal heart sound present GI: COMMON NORMALS: Normal to inspection, nondistended, normoactive bowel sounds present, Soft to palpation, non-tender, No hepatosplenomegaly present, no masses and no bruits PALPATION: Yes Soft to palpation and Yes No hepatosplenomegaly present Extremity: COMMON NORMALS: capillary refill normal, no clubbing, cyanosis or edema, no calf tenderness and no pedal edema Neuro: COMMON NORMALS: patient oriented x3 and moves all extremities OTHER: Left facial numbness, slight left facial droop, slight slurring of her words, left arm numbness, [id number]-[id number] abnormal on the left, [id number]-[id number]-[id number] abnormal on the left, no visual field deficits, good strength upper extremities, equal bilaterally, good strength bilateral extremity equal bilaterally, alert oriented x3, follows commands keenly awake and alert Psych: COMMON NORMALS: mental status grossly normal Data : 12/13/21 17:00 12/13/21 17:00 A&P Assessment and plan (1) CVA (cerebral vascular accident): Status: Acute (2) Acute UTI: Status: Acute (3) SINA (acute kidney injury): Status: Acute (4) Dehydration: Status: Acute (5) Generalized weakness: Status: Acute (6) Diabetes mellitus: Status: Acute (7) Hypertension: Status: Acute Qualifiers: Hypertension type: primary hypertension Qualified Code(s): I10 - Essential (primary) hypertension (8) Anxiety: Status: Acute Plan CVA -Timeframe uncertain -Currently her NIH stroke scale 5 -Out of tPA window as timeframe is uncertain -Seems to have waxing and waning symptoms -However now what is new according to family is slight left facial droop, slurring of her words, incoordination on the left -CT of the head 12/11/2021 showed -Small posterolateral right frontal lobe subacute to chronic infarction. Consider MRI of the brain for further assessment. Plan: -Neurochecks, aspiration precautions, and a stroke scale -Gentle IV hydration at 30 cc an hour -We will repeat CT of the head, evaluate for new stroke, possible cerebellar stroke?, Embolic events, hemorrhagic transformation -Carotid echo, cardiac echo -MRI brain ordered -Continue aspirin, statin, consider adding Plavix -Telemetry monitoring -Serial EKGs, serial troponins, BMP, TSH -Bedside swallow eval, swallow eval, does report episodes of choking, keep n.p.o. for now -PT OT -DNR/DNI -Lovenox for DVT prophylaxis Bilateral lower extremity weakness,, etiology uncertain, will do CT lumbar spine, possible UTI Nausea, vomiting, Zofran IV fluids UTI, continue Rocephin Lower lumbar back pain, CT lumbar spine Type 2 diabetes mellitus, not on sliding scale Hypertension, hold nephrotoxic medications SINA IV fluids Lower extremity edema, minimal History of breast cancer Attestations Medical Necessity Statement*: Patient requires hospitalization for UTI, CVA, outpatient with observation Coding Level of Care Code Acute Banquet Director for [facility] Fwd Diagnoses CVA (cerebral vascular accident) I63.9 Acute UTI N39.0 SINA (acute kidney injury) N17.9 Dehydration E86.0 Generalized weakness R53.1 Diabetes mellitus E11.9 Hypertension I10 Hypertension type: primary hypertension Anxiety F41.9
--- NOTE | 2021-12-13 18:47 | ECG_ITS ---
[facility] Test Date: 2021-12-13 Pat Name: Lela Joaquin Department: Room: 275 Gender: Female Log Rafter: : 1940 Requested By: Evin Walter Order Number: [id number] Pieter MD: Jessica Caban M.D. Measurements Intervals [place] Rate: 84 P: 42 [place]: 174 QRS: 0 QRSD: 82 T: 40 QT: 358 QTc: 425 Interpretive Statements SINUS RHYTHM MODERATE VOLTAGE CRITERIA FOR LVH, CONSIDER NORMAL VARIANT [MEETS CRITERIA IN ONE OF: R(aVL), S(V1), R(V5), R(V5/V6)+S(V1)] Compared to ECG 12/13/2021 18:44:58 No significant changes Electronically Signed On 12-13-2021 22:47:06 CDT by Jessica Caban M.D. [id number]
--- NOTE | 2021-12-13 18:50 | USR_ITS ---
PROCEDURE INFORMATION: Exam: US Duplex Bilateral Extracranial Arteries, Carotid Arteries Exam date and time: 12/13/2021 10:58 PM Age: 81 years old Clinical indication: Condition or disease; Cerebrovascular disease; Additional info: CVA, patient not transfered @2024 TECHNIQUE: Imaging protocol: Real-time Duplex ultrasound scan of the bilateral carotid and vertebral arteries combining mcintyre scale, color Doppler and spectral waveform analysis. Bilateral exam. Exam focused on the carotid arteries. COMPARISON: CT head wo con* [id number] 12/13/2021 7:24 PM FINDINGS: Right common carotid artery: Mild distal plaque. No occlusion or significant stenosis. Waveforms are normal. Right internal carotid artery: Mild proximal plaque. No occlusion or significant stenosis. Waveforms are normal. Peak systolic velocity is 58 cm/s. End-diastolic velocity is 20 cm/s. Right ICA/CCA ratio: Within normal limits. Right external carotid artery: No stenosis in the origin. Right vertebral artery: Unremarkable. Antegrade flow. Left common carotid artery: Mild distal plaque. No occlusion or significant stenosis. Waveforms are normal. Left internal carotid artery: Mild proximal plaque. No occlusion or significant stenosis. Waveforms are normal. Peak systolic velocity is 86 cm/s. End-diastolic velocity is 28 cm/s. Left ICA/CCA ratio: Within normal limits. Left external carotid artery: No stenosis in the origin. Left vertebral artery: Unremarkable. Antegrade flow. US/CV carotid duplex BI* [id number] IMPRESSION: 1. Mild, less than 50%, bilateral ICA stenoses noted. 2. The vertebral arteries are patent, with antegrade flow direction bilaterally. REFERENCES: SRU CRITERIA. The degree of internal carotid artery stenosis is based on criteria defined by the Society of Radiologists in Ultrasound (SRU). Normal is no stenosis. Mild is less than 50% stenosis. Moderate is 50-69% stenosis. Severe is greater than 69% stenosis to near occlusion. Near occlusion is a markedly narrowed lumen. Total occlusion is no detectable patent lumen.
--- NOTE | 2021-12-13 18:50 | CTR_ITS ---
PROCEDURE INFORMATION: Exam: CT Head Without Contrast Exam date and time: 12/13/2021 7:24 PM Age: 81 years old Clinical indication: Patient HX: HX of CVA C/O weakness and dizziness TECHNIQUE: Imaging protocol: Computed tomography of the head without contrast. Radiation optimization: All CT scans at this facility use at least one of these dose optimization techniques: automated exposure control; mA and/or kV adjustment per patient size (includes targeted exams where dose is matched to clinical indication); or iterative reconstruction. COMPARISON: CT head wo con* [id number] 12/11/2021 6:35 PM RADIATION DOSE METRICS: Total DLP (mGy-cm): 783.64 FINDINGS: Brain: Mild hypodense changes are noted in the bilateral periventricular regions, likely related to chronic microvascular ischemic disease. An ill-defined somewhat discrete low-density focus is also seen in the cortical/subcortical region of the right superior frontal lobe, unchanged and may represent small chronic infarct or other chronic parenchymal injury. There is mild brain parenchymal atrophy. No acute intracranial hemorrhage, mass effect or midline shift. Cerebral ventricles: No pathologic ventricular dilatation. Paranasal sinuses: Visualized sinuses are unremarkable. No fluid levels. Mastoid air cells: Visualized mastoid air cells are well aerated. Bones/joints: Unremarkable. No acute fracture. Soft tissues: Unremarkable. CT/CT head wo con* [id number] IMPRESSION: 1. No acute intracranial findings. 2. Other chronic findings as above.
--- NOTE | 2021-12-13 18:50 | CTR_ITS ---
PROCEDURE INFORMATION: Exam: CT Lumbar Spine Without Contrast Exam date and time: 12/13/2021 7:27 PM Age: 81 years old Clinical indication: Low back pain; Patient HX: C/O lbp and le weakness TECHNIQUE: Imaging protocol: Computed tomography images of the lumbar spine without contrast. Radiation optimization: All CT scans at this facility use at least one of these dose optimization techniques: automated exposure control; mA and/or kV adjustment per patient size (includes targeted exams where dose is matched to clinical indication); or iterative reconstruction. COMPARISON: No relevant prior studies available. RADIATION DOSE METRICS: Total DLP (mGy-cm): 2387.38 FINDINGS: Vertebrae: Mild scoliosis of the lumbar spine, convex to the right. No spondylolisthesis or spondylolysis. No lumbar compression fractures are noted. Discs/Spinal canal/Neural foramina: Advanced lumbar disc degeneration with vacuum disc phenomenon noted at L1-L2, L2-L3, and L4-L5. Facet joints are intact. No severe spinal canal stenosis at any lumbar level. Kidneys and ureters: Nonobstructing right renal calculi noted incidentally. Soft tissues: Paraspinous soft tissues are unremarkable. CT/CT lumbar spine wo con* [id number] IMPRESSION: 1. Mild scoliosis of the lumbar spine, convex to the right. 2. No lumbar compression fractures are noted. 3. Advanced degenerative disc changes are present at L1-L2, L2-L3, and L4-L5. No severe spinal canal stenosis at any lumbar level.
--- NOTE | 2021-12-13 19:10 | PC.NURSE ---
Report called to [facility] for transfer to Med Surg.
[2021-12-13 19:20] LABS: Troponin 5 2HR 18.96 ng/L (0-10)
[2021-12-13 19:41] LABS: Troponin 5 2HR Delta -3.04 ABS# (0-10)
[2021-12-13 19:47] LABS: Estmated Average Glucose 169; Hemoglobin A1C 7.5 % (4.0-6.0)
[2021-12-13 19:49] LABS: NT Pro B Type Natriuretic Pept 1074 pg/mL (0-450)
[2021-12-13 20:00] VITALS: BP 177/70; PULSE 85; RESP 18; TEMP 37.1; O2SAT 99
[2021-12-13] MEDS: sodium chloride 0.9% 1,000 ML 50 ML IV (20:20)
[2021-12-13] MEDS: metoprolol tartrate 25 mg Tablet 12.5 MG PO (20:21)
[2021-12-13] MEDS: enoxaparin 40 mg/0.4 mL Syringe SUBCUT (20:22)
[2021-12-13] MEDS: pantoprazole 40 mg SDV IVP (20:38)
[2021-12-13] MEDS: acetaminophen 325 mg Tablet 650 MG PO (21:12)
[2021-12-13 22:00] VITALS: PULSE 81
[2021-12-13 22:45] VITALS: PULSE 78; O2SAT 95
[2021-12-14] VITALS (8 sets, daily range): BP systolic 135–149; BP diastolic 71–82; PULSE 75–94; RESP 12–17; TEMP 36.8–37.1; O2SAT 93–95
--- NOTE | 2021-12-14 00:02 | USCV_ITS ---
Jemal, Lela Age: 81 Gender: F : 1940 Exam Date: 12/14/2021 08:36 Ordering Phys: Evin Walter MD Technologist: Dallas Lam [place] [facility] [place]: chest pain BP: 130 / 75 HR: 77 Rhythm: Sinus Technical Quality: Adequate MEASUREMENTS (Male / Female) Normal Values 2D ECHO LV Diastolic Diameter PLAX 4.4 cm 4.2 - 5.9 / 3.9 - 5.3 cm LV Systolic Diameter PLAX 3.3 cm IVS Diastolic Thickness 1.1 cm 0.6 - 1.0 / 0.6 - 0.9 cm IVS Systolic Thickness 1.2 cm LVPW Diastolic Thickness 1.3 cm 0.6 - 1.0 / 0.6 - 0.9 cm LVPW Systolic Thickness 1.6 cm LVOT Diameter 2.1 cm LV Ejection Fraction 2D Teich 47.1 % LV Ejection Fraction MOD 2C 49.8 % LV Ejection Fraction 2C AL 49.4 % LA Diameter 3.6 cm M-MODE Aortic Annulus Diameter 3.6 cm LA Ao Ratio MM 1.3 MV E Point Septal Separation 0.8 cm DOPPLER AV Peak Velocity 140.0 cm/s LVOT Peak Velocity 86.0 cm/s AV Area Cont Eq vti 2.2 cm squared AV Area Cont Eq pk 2.1 cm squared MV Area PHT 5.0 cm squared Mitral E to A Ratio 0.8 MV E' Velocity 39.0 cm/s Mitral E to MV E' Ratio 9.2 Mitral E to LV E' Lateral Ratio 7.8 Mitral E to LV E' Septal Ratio 11.1 TR Peak Velocity 151.5 cm/s TR Peak Gradient 9.2 mmHg Right Atrial Pressure 3.0 mmHg Pulmonary Artery Systolic Pressu 12.2 mmHg PV Peak Velocity 126.0 cm/s FINDINGS Left Ventricle Normal left ventricular size. LV systolic function is normal with EF of 50-55%. No regional wall motion abnormalities. Grade 1 diastolic dysfunction Right Ventricle The right ventricle is normal in size and function. Right Atrium The right atrium is normal in size. Left Atrium The left atrium is normal in size. Mitral Valve Mitral annular calcification without significant stenosis or prolapse. There is no mitral regurgitation. Aortic Valve Aortic valve is thickened without significant stenosis. There is mild aortic regurgitation. Tricuspid Valve Structurally normal tricuspid valve without significant stenosis or regurgitation. Insufficient TR jet to calculate RVSP Pulmonic Valve Not well visualized Pericardium Normal pericardium without effusion. Aorta Normal ascending aorta dimension. CONCLUSIONS LV systolic function is normal with EF of 50-55% Grade 1 diastolic dysfunction Mild aortic regurgitation No comparison studies are available Steffen Segundo MD (Electronically Signed) Final Date: 14 Dec 2021 17:11 S
--- NOTE | 2021-12-14 00:46 | ECG_ITS ---
[facility] Test Date: 2021-12-14 Pat Name: Lela Joaquin Department: Room: 275 Gender: Female Flight Instructor: : 1940 Requested By: Evin Walter Order Number: [id number] Pieter MD: Jessica Caban M.D. Measurements Intervals Hillister Rate: 83 P: 44 TN: 172 QRS: 10 QRSD: 102 T: 49 QT: 381 QTc: 449 Interpretive Statements SINUS RHYTHM WITH OCCASIONAL SUPRAVENTRICULAR PREMATURE COMPLEXES LOW QRS VOLTAGE IN PRECORDIAL LEADS [QRS DEFLECTION < 1.0 mV IN CHEST LEADS] Compared to ECG 12/13/2021 19:13:22 Low QRS voltage now present Electronically Signed On 12-14-2021 21:40:08 CDT by Jessica Caban M.D. [id number]
[2021-12-14 01:20] LABS: Troponin 5 6HR 21.15 ng/L (0-10)
[2021-12-14 01:32] LABS: Troponin 5 6HR Delta -0.85 ng/L (0-12)
[2021-12-14 04:26] LABS: Basophils % 0.6 %; Eosinophils # 0.1 10^3/uL (0.0-0.8); Eosinophils % 1.7 %; Hematocrit 34.2 % (37.0-47.0); Hemoglobin 10.6 g/dL (11.5-15.3); Lymphocytes # 1.2 10^3/uL (0.8-4.8); Mean Corpuscular Volume 96.9 fl (81-99); Mean Platelet Volume 12.2 fL (7.4-10.4); Monocytes # 0.5 10^3/uL (0.2-0.9); Neutrophils % 70.2 %; Nucleated Red Blood Cells % 0 %; Platelet Count 113 10^3/cmm (130-400); Red Blood Count 3.53 10^6/uL (4.1-5.3); Red Cell Distribution Width 14.4 % (12.1-15.1); White Blood Count 6.5 10^3/uL (4.0-10.0)
[2021-12-14 04:43] LABS: Alanine Aminotransferase 11 U/L (0-33); Alkaline Phosphatase 74 IU/L (35-105); Anion Gap 16.3 (5-19); Aspartate Amino Transferase 13 U/L (0-32); Blood Urea Nitrogen 23 mg/dL (8-23); Calcium 9.1 mg/dL (8.5-10.5); Carbon Dioxide 25 mmol/L (22-29); Chloride 101 mmol/L (98-107); Globulin 3.5 g/dL (1.3-4.6); Glucose 176 mg/dL (65-115); Magnesium 2.1 mg/dL (1.7-2.3); Osmolality Calculated 296 mOsm/kg (285-295); Phosphorus 2.5 mg/dL (2.5-4.5); Potassium 3.3 mmol/L (3.5-5.1); Sodium 139 mmol/L (136-145); Total Bilirubin 0.3 mg/dL (0.15-1.2); Total Protein 6.5 g/dL (6.6-8.7)
[2021-12-14] MEDS: acetaminophen 325 mg Tablet 650 MG PO ×2 (04:52→14:38)
[2021-12-14] MEDS: metoprolol tartrate 25 mg Tablet 12.5 MG PO (06:31)
--- NOTE | 2021-12-14 07:35 | MR_ITS ---
WS: [id number] MRI HEAD WITHOUT CONTRAST TECHNIQUE: Sagittal T1, T2 axial, T2 axial FLAIR, axial and coronal T1 images, axial susceptibility w eighted imaging, axial diffusion weighted images, and coronal T2 images were obtained. CLINICAL INFORMATION: cva COMPARISON: CT 12/13/21 FINDINGS: Multiple foci of restricted diffusion involving the RIGHT frontal and parietal lobes more prominent a t the frontoparietal junction measuring 1.8 x 1.6 cm consistent with acute ischemia. Additional patch y foci of restricted diffusion extending into the RIGHT parietal occipital junction and RIGHT occipit al lobe. Mild associated edema. No significant mass effect or midline shift. Normal posterior fossa. Normal vascular flow voids at the skull base. No extra-axial fluid collections. No evidence of mass o r mass effect. Paranasal sinuses and mastoid air cells are well aerated. Normal optic chiasm and pituitary infundibu lum. Moderate symmetric atrophy temporal lobes and hippocampal formations. No hemosiderin on the susc eptibly weighted images. Chronic lacunar infarct in the dorsal jennifer. Mild small vessel changes. Moderate parenchymal volume lo ss. MR/MR head wo con* [id number] IMPRESSION: 1. Patchy areas of acute ischemia within the RIGHT frontal and parietal lobes with a more focal area of acute ischemia at the RIGHT frontoparietal junction m easuring 1.8 x 1.6 cm. 2. No significant mass effect or midline shift. 3. Mild small vessel changes with moderate parenchymal volume loss. 4. Chronic lacunar infarct in the ventral jennifer. Notified Dr. Mcarthur at 12/14/2021 9:25 AM.
[2021-12-14 08:32] LABS: Glucose Point of Care 206 mg/dL (70-110)
[2021-12-14 08:32] LABS: Glucose Point of Care 216 mg/dL (70-110)
[2021-12-14 08:32] LABS: Glucose Point of Care 198 mg/dL (70-110)
[2021-12-14 11:26] LABS: Glucose Point of Care 195 mg/dL (70-110)
[2021-12-14] MEDS: aspirin 81 mg EC Tablet PO (12:44)
[2021-12-14] MEDS: atorvastatin 40 mg Tablet 80 MG PO (12:44)
[2021-12-14] MEDS: insulin lispro 100 unit/1 mL SUBCUT ×2 (13:34→18:01)
--- NOTE | 2021-12-14 16:20 | P.DS_ITS ---
Discharge Providers Date of Admission: 12/13/21 17:55 Date of Discharge: December 14, 2021 Attending Provider at Admission: Evin Walter MD Attending Provider at Discharge: Morteza Mcarthur Primary Care Provider: Nahomy Navas MD Diagnoses at Discharge Discharge Diagnosis (1) CVA (cerebral vascular accident): Status: Acute (2) Acute UTI: Status: Acute (3) SINA (acute kidney injury): Status: Acute (4) Dehydration: Status: Acute (5) Generalized weakness: Status: Acute (6) Diabetes mellitus: Status: Acute (7) Hypertension: Status: Acute Qualifiers: Hypertension type: primary hypertension Qualified Code(s): I10 - Essential (primary) hypertension (8) Anxiety: Status: Acute Reason for Visit Reason for Visit: Nausia, Weakness Hospital Course Hospital Course Pleasant 81-year-old lady was admitted for assessment management of progressive symptoms of left facial numbness, left hand numbness, recently assessed for possible CVA, discharged with aspirin, statin, returned with persistent symptoms of left facial numbness, left arm numbness, as well as slurring of her words, difficulty with coordination, as well as generally weak, with some increased confusion, with nausea. Was having difficulty getting up and transferring, and who is not in the best condition himself had difficult time assisting her with getting up and transferring. Per report on admission over the last weeks to months had progressive numbness in the left hand, also involving left shoulder, also left-sided face. With also more difficulty in ambulation. With noted episode of confusion, slurring of speech, left-sided facial droop by family. Trouble with coordination. She was placed in observation for assessment management of CVA, outside window of tPA or intervention. CT without acute intracranial findings, but with noted ill-defined somewhat discrete low-density focus in cortical/subcortical region of the right superior frontal lobe, unchanged, possibly small chronic infarct or other chronic parenchymal injury. Mild brain parenchymal atrophy noted, as well as mild hypodense changes noted in bilateral periventricular regions, likely related to chronic microvascular ischemic disease. Was continued on aspirin, statin. NIHSS was 7, was not found candidate for Plavix. Carotid duplex with noted less than 50% bilateral ICA stenosis. Vertebral arteries patent with antegrade flow direction bilaterally. Was assessed by speech therapy with recommendation for mechanical soft diet. Assessed by PT, OT. Treated for urinary tract infection with ceftriaxone. Already doing better, stronger while in the hospital, did manage transferring independently. Impression possible treatment of UTI. Given frailty of her , likely to have more benefit with continued home health physical therapy, this is requested for her. Continues on aspirin, statin. She is set up with registered nurse cardiac given on MRI performed today is also noted to have patchy areas of acute ischemia within the right frontal and parietal lobes with more focal area of ischemia in the right frontal parietal junction measuring 1.8 x 1.6 cm. Without significant mass- effect or midline shift. Mild small vessel changes with moderate parenchymal volume loss. Chronic lacunar infarct in the ventral jennifer. To additionally assess for consideration of embolic source is also referred to follow-up with cardiology for TASNEEM, as well as referral for neurology follow-up for additional assessment and recommendations. Will continue on antibiotic regimen with cefdinir for UTI, urine cultures are pending. Please follow-up with SINA noted on presentation, creatinine 1.3 has resolved with gentle IV fluids. Please reassess renal function. Physical Exam Narrative: at bedside. Const: COMMON NORMALS: alert GENERAL APPEARANCE: cooperative NUTRITIONAL APPEARANCE: overweight ORIENTATION/CONSCIOUSNESS: Yes awake HENMT: COMMON NORMALS: normocephalic, EAC's normal, Normal external nose pr esent and moist oral mucous membranes HEAD & SCALP: normocephalic NOSE: Normal external nose present EXTERNAL AUDITORY CANAL: EAC's normal Neck/C-Spine: COMMON NORMALS: no meningeal signs Chest: CHEST: Yes Symmetrical chest wall rise Resp: COMMON NORMALS: clear to auscultation bilaterally AUSCULTATION: clear to auscultation bilaterally Cardio: COMMON NORMALS: regular rate, regular rhythm and No murmurs present (Cardio) RATE: regular rate RHYTHM: regular rhythm GI: COMMON NORMALS: Normal to inspection, nondistended, normoactive bowel sounds present, Soft to palpation and non-tender PALPATION: Yes Soft to palpation Extremity: COMMON NORMALS: no pedal edema Neuro: COMMON NORMALS: moves all extremities SENSORIUM/ORIENTATION: Yes alert MENINGEAL SIGNS: Yes no meningeal signs COORDINATION/BALANCE: other (FNF slow on L side) SPEECH: speech normal SENSORY EXAM: Yes extremities (Diminished L hand, L side face) MOTOR EXAM: Pronator motor function present (LUE) and Other motor observations present (3/5 LUE, other sites 4/5 throughout) COORDINATION: other (FNF slow on L side) OTHER: Awake and alert. Readily follows instructions. No trouble tracking. Visual doyle full to confrontation. Left-sided facial droop. Psych: COMMON NORMALS: mental status grossly normal Skin: COMMON NORMALS: no wounds RASHES: no rashes Discharge Data Studies Completed and Pending Completed Studies During Hospitalization Category Date Time Status CT head wo con* [id number] Urgent Cat Scan 12/13/21 18:[address] lumbar spine wo con* [id number] Urgent Cat Scan 12/13/21 18:50 Completed XR chest 1V portable [id number] Urgent Exams 12/13/21 17:55 Completed MR head wo con* [id number] Urgent MRI 12/14/21 07:35 Completed CV carotid duplex BI* [id number] Urgent Ultrasound 12/13/21 18:50 Completed Pending at discharge Category Date Time Status Blood Culture Stat Lab 12/13/21 21:25 Results Complete Blood Count w/Auto AM LABS Lab 12/15/21 04:00 Ordered Complete Blood Count w/Auto AM LABS Lab 12/16/21 04:00 Ordered Comprehensive Metabolic Panel AM LABS Lab 12/15/21 04:00 Ordered Comprehensive Metabolic Panel AM LABS Lab 12/16/21 04:00 Ordered Magnesium AM LABS Lab 12/15/21 04:00 Ordered Magnesium AM LABS Lab 12/16/21 04:00 Ordered Phosphorus AM LABS Lab 12/15/21 04:00 Ordered Phosphorus AM LABS Lab 12/16/21 04:00 Ordered Urine Culture Stat Lab 12/13/21 17:10 Received CV. echo complete* [id number] Routine Ultrasound 12/14/21 00:02 Taken Radiology Impressions Chest X-Ray 12/13/21 17:55 IMPRESSION: No obvious acute consolidation. Suboptimal lung base assessment. Followup including lateral view may be obtained if clinically indicated. Carotid Doppler Study 12/13/21 18:50 IMPRESSION: 1. Mild, less than 50%, bilateral ICA stenoses noted. 2. The vertebral arteries are patent, with antegrade flow direction bilaterally. REFERENCES: SRU CRITERIA. The degree of internal carotid artery stenosis is based on criteria defined by the Society of Radiologists in Ultrasound (SRU). Normal is no stenosis. Mild is less than 50% stenosis. Moderate is 50-69% stenosis. Severe is greater than 69% stenosis to near occlusion. Near occlusion is a markedly narrowed lumen. Total occlusion is no detectable patent lumen. Head CT 12/13/21 18:50 IMPRESSION: 1. No acute intracranial findings. 2. Other chronic findings as above. Lumbar Spine CT 12/13/21 18:50 IMPRESSION: 1. Mild scoliosis of the lumbar spine, convex to the right. 2. No lumbar compression fractures are noted. 3. Advanced degenerative disc changes are present at L1-L2, L2-L3, and L4-L5. No severe spinal canal stenosis at any lumbar level. Head MRI 12/14/21 07:35 IMPRESSION: 1. Patchy areas of acute ischemia within the RIGHT frontal and parietal lobes with a more focal area of acute ischemia at the RIGHT frontoparietal junction measuring 1.8 x 1.6 cm. 2. No significant mass effect or midline shift. 3. Mild small vessel changes with moderate parenchymal volume loss. 4. Chronic lacunar infarct in the ventral jennifer. Notified Dr. Mcarthur at 12/14/2021 9:25 AM. Laboratory Results WBC 6.5 10^3/uL (4.0-10.0) 12/14/21 04:00 RBC 3.53 10^6/uL (4.1-5.3) L 12/14/21 04:00 Hgb 10.6 g/dL (11.5-15.3) L 12/14/21 04:00 Hct 34.2 % (37.0-47.0) L 12/14/21 04:00 MCV 96.9 fl (81-99) D 12/14/21 04:00 MCH 30.0 pg (28.0-34.0) 12/14/21 04:00 MCHC 31.0 g/dL (30.0-36.0) D 12/14/21 04:00 RDW 14.4 % (12.1-15.1) 12/14/21 04:00 Plt Count 113 10^3/cmm (130-400) L 12/14/21 04:00 MPV 12.2 fL (7.4-10.4) H 12/14/21 04:00 Neut % (Auto) 70.2 % 12/14/21 04:00 Lymph % (Auto) 19.0 % 12/14/21 04:00 Wharton % (Auto) 8.0 % 12/14/21 04:00 Eos % (Auto) 1.7 % 12/14/21 04:00 Baso % (Auto) 0.6 % 12/14/21 04:00 Neut # (Auto) 4.60 10^3/uL (1.8-7.7) 12/14/21 04:00 Lymph # (Auto) 1.2 10^3/uL (0.8-4.8) 12/14/21 04:00 Wharton # (Auto) 0.5 10^3/uL (0.2-0.9) 12/14/21 04:00 Eos # (Auto) 0.1 10^3/uL (0.0-0.8) 12/14/21 04:00 Baso # (Auto) 0.0 10^3/uL (0.0-0.1) 12/14/21 04:00 Nucleated RBC % (auto) 0 % 12/14/21 04:00 Nucleated RBCs # 0.0 /100WBC 12/14/21 04:00 Sodium 139 mmol/L (136-145) 12/14/21 04:00 Potassium 3.3 mmol/L (3.5-5.1) L 12/14/21 04:00 Chloride 101 mmol/L (98-107) 12/14/21 04:00 Carbon Dioxide 25 mmol/L (22-29) 12/14/21 04:00 Anion Gap 16.3 (5-19) 12/14/21 04:00 BUN 23 mg/dL (8-23) 12/14/21 04:00 Creatinine 0.9 mg/dL (0.5-0.9) 12/14/21 04:00 GFR Calculation Not Reportable 12/14/21 04:00 Glucose 176 mg/dL (65-115) H 12/14/21 04:00 POC Glucose 195 mg/dL (70-110) H 12/14/21 11:20 Estimat Average Glucose 169 12/13/21 17:00 Hemoglobin A1c 7.5 % (4.0-6.0) H 12/13/21 17:00 Calculated Osmolality 296 mOsm/kg (285-295) H 12/14/21 04:00 Calcium 9.1 mg/dL (8.5-10.5) 12/14/21 04:00 Phosphorus 2.5 mg/dL (2.5-4.5) 12/14/21 04:00 Magnesium 2.1 mg/dL (1.7-2.3) 12/14/21 04:00 Total Bilirubin 0.3 mg/dL (0.15-1.2) 12/14/21 04:00 AST 13 U/L (0-32) 12/14/21 04:00 ALT 11 U/L (0-33) 12/14/21 04:00 Alkaline Phosphatase 74 IU/L (35-105) 12/14/21 04:00 Troponin T Baseline 22 ng/L (0-10) H 12/13/21 17:00 Troponin T 120 Minute 18.96 ng/L (0-10) H 12/13/21 18:47 Delta Troponin T -3.04 ABS# (0-10) L 12/13/21 18:47 Troponin T Hi Sens 6Hr 21.15 ng/L (0-10) H 12/14/21 00:56 Troponin T Hi Sens 6Hr Delta -0.85 ng/L (0-12) L 12/14/21 00:56 NT-Pro-B Natriuret Pep 1074 pg/mL (0-450) H 12/13/21 17:00 Total Protein 6.5 g/dL (6.6-8.7) L 12/14/21 04:00 Albumin 3.0 g/dL (3.5-5.2) L 12/14/21 04:00 Globulin 3.5 g/dL (1.3-4.6) 12/14/21 04:00 Lipase 25 U/L (13-60) 12/13/21 17:00 TSH 1.40 uIU/mL (0.27-4.20) 12/13/21 17:00 Urine Color Straw (Yellow) 12/13/21 17:10 Urine Appearance Sl hazy (CLEAR) 12/13/21 17:10 Urine pH 5 (5-7) 12/13/21 17:10 Ur Specific Emerado 1.015 (1.005-1.030) 12/13/21 17:10 Urine Protein Neg (Negative) 12/13/21 17:10 Urine Glucose (UA) 1+ (Normal) H 12/13/21 17:10 Urine Ketones Negative (Negative) 12/13/21 17:10 Urine Blood 3+ (Negative) H 12/13/21 17:10 Urine Nitrate Positive (Negative) H 12/13/21 17:10 Urine Bilirubin Neg (Negative) 12/13/21 17:10 Urine Urobilinogen Norm mg/dL (Negative) 12/13/21 17:10 Ur Leukocyte Esterase Trace (Negative) H 12/13/21 17:10 Urine RBC 5-10 /hpf (0-2) H 12/13/21 17:10 Urine WBC 15-25 /hpf (0-5) H 12/13/21 17:10 Ur Squamous Epith Cells 5-10 /hpf (0-5) H 12/13/21 17:10 Amorphous Sediment Not Reportable 12/13/21 17:10 Urine Bacteria 3+ /hpf (NONE) H 12/13/21 17:10 Vitals Last Vital Signs Temp 98.2 F 12/14/21 16:00 Pulse 89 12/14/21 16:00 Resp 12 12/14/21 16:00 BP 141/82 12/14/21 16:00 Pulse Ox 95 12/14/21 16:00 Discharge Plan Discharge Patient Disposition: Home Health Service Condition: Stable Prescriptions: New cefdinir 300 mg capsule 300 mg PO BID 10 Days Qty: 20 0RF Continued lorazepam 1 mg tablet 1 mg PO DAILY PRN (Reason: anxiety) Qty: 4 0RF amitriptyline 10 mg tablet 10 mg PO DAILY Qty: 90 1RF perphenazine 2 mg tablet 2 mg PO DAILY Qty: 90 1RF fluorouracil [Efudex] 5 % cream 1 applic topical BID 0RF Rx Instructions: apply sufficient amount to cover all lesions pioglitazone 30 mg tablet See Rx Instructions .ROUTE .COMPLEX Qty: 90 1RF Dose Instruction: TAKE 1 TABLET BY MOUTH EVERY DAY Rx Instructions: TAKE 1 TABLET BY MOUTH EVERY DAY bisoprolol-hydrochlorothiazide 10-6.25 mg tablet See Rx Instructions .ROUTE .COMPLEX Qty: 90 2RF Dose Instruction: TAKE 1 TABLET BY MOUTH EVERY DAY Rx Instructions: TAKE 1 TABLET BY MOUTH EVERY DAY potassium chloride 20 mEq tablet extended release 20 meq PO DAILY Qty: 90 2RF aspirin 81 mg Tablet,Chewable 81 mg PO DAILY 0RF rosuvastatin 20 mg tablet 20 mg PO DAILY Qty: 30 0RF tizanidine 2 mg capsule 2 mg PO BEDTIME PRN (Reason: muscle spasticity) Qty: 20 0RF Changed furosemide 20 mg tablet 20 mg PO BID PRN (Reason: feet swelling) 90 Days Qty: 180 0RF Held quinapril 40 mg tablet 40 mg PO DAILY Qty: 90 2RF Hold Instructions: Resume on 12/16/21. Discharge Orders: Discharge Order (Routine); Ordered 12/14/21 Ordered By: Morteza Mcarthur Other Ambulatory Orders: MCT/Event Monitor 21 Days (Routine) Timeframe: 2 Days Facility: [facility] - Location: Radiology Ordered By: Morteza Mcarthur Referrals: [facility] [Provider Group] - 1 week (CVA) Nahomy Navas MD [Primary Care Provider] - 4-7 days Steffen Segundo M.D [Physician] - 01/28/22 1:15 pm (Multifocal CVA - TASNEEM consideration) Discharge Diet: As Directed, Cardiac, Diabetic and Soft Mechanical Discharge Activity: Use walker/crutches as instructed and As per PT/OT instructions Patient Instructions: Ischemic Stroke (GEN) Activity Restrictions/Additional Instructions: Please resume antihypertensives gradually, bisoprolol-HCTZ first, then 1-2 days later if blood pressure still elevated, above 130/90, resume also quinapril. Continue aspirin and cholesterol medication. Please follow through with arrangements to set up registered nurse cardiac.APPOINTMENT FOR [facility] ON TuesdayDECEMBER 17 AT 1:45 Follow-up also with cardiology in office for discussion of setting up transesophageal echocardiogram to additionally assess for any possible embolic source of stroke. Follow-up with neurology for additional assessment and recommendations. Continue to optimize cardiovascular risk factors with your primary doctor. Discussed less than 50% intracranial carotid artery stenosis noted on ultrasound. Continue follow-up regarding diabetes, hypertension. Please have your primary doctor reassess also kidney function, as you were noted to have acute kidney injury on presentation. Hold quinapril next 2 days. Avoid any NSAIDs (medications like ibuprofen, Aleve, etc.) Complete antibiotic course for urinary tract infection. Follow-up with your primary doctor also regarding advanced degenerative disc disease and lumbar spine. Continue mobilization with physical therapy. In case of any new numbness, weakness, difficulties with speech, vision, or other sudden changes, call 911. Discharge Attestations Time Spent in Discharge Care*: greater than 30 min Quality Metrics Clinical Quality Measures [ Cerebrovascular Accident { Contraindication to Antithrombotic: None; antithrombotic prescribed; Contraindication to Anticoagulation: Overlap treatment not indicated; Contraindication to Statin: None; Statin prescribed;}] Coding Level of Care Code Acute Chg FW DC note Diagnoses CVA (cerebral vascular accident) I63.9 Acute UTI N39.0 SINA (acute kidney injury) N17.9 Dehydration E86.0 Generalized weakness R53.1 Diabetes mellitus E11.9 Hypertension I10 Hypertension type: primary hypertension Anxiety F41.9
[2021-12-14 17:57] LABS: Glucose Point of Care 224 mg/dL (70-110)
== END 2021-12-14 18:30 | disposition home health service (06) ==
LOC: ER 17:59 → MEDSURG 18:40
PROVIDERS: Admitting Provider Family Medicine; Emergency Provider Emergency Medicine; PCP Family Medicine; Visit Provider Internal Medicine
DX: I63.9 Cerebral infarction, unspecified (principal); N39.0 Urinary tract infection, site not specified; N17.9 Acute kidney failure, unspecified; E86.0 Dehydration; R53.1 Weakness; E11.9 Type 2 diabetes mellitus without complications; I10 Essential (primary) hypertension; F41.9 Anxiety disorder, unspecified; Z79.82 Long term (current) use of aspirin; Z66 Do not resuscitate; Z85.3 Personal history of malignant neoplasm of breast; I65.23 Occlusion and stenosis of bilateral carotid arteries
CPT/HCPCS: 36415; 36416; 70450; 70551; 71045; 72131; 80053; 81001; 82962; 83036; 83690; 83735; 83880; 84100; 84443; 84484; 85025; 87040; 87077; 87086; 87186; 92523; 92610; 93005; 93306; 93880; 94664; 96365; 96367; 96372; 96375; 97110; 97116; 97161; 97166; 99285; C9113; G0378; J0696; J1650; J1815; J7030

== ENCOUNTER → 2021-12-21 10:38 | Outpatient (BNVA) | payer MEDICARE, BC, SELFPAY | PROVIDERS: PCP Family Medicine; Visit Provider Family Medicine | DX: Z09 Encounter for follow-up examination after completed treatment for conditions other than malignant neoplasm (principal); I63.9 Cerebral infarction, unspecified; I87.2 Venous insufficiency (chronic) (peripheral); E11.9 Type 2 diabetes mellitus without complications; E87.6 Hypokalemia | CPT/HCPCS: 80053; 85025 ==

== ENCOUNTER → 2023-08-09 12:00 | Outpatient (BNVA) | payer MEDICARE, SELFPAY | PROVIDERS: PCP Family Medicine; Visit Provider Family Medicine | DX: E11.9 Type 2 diabetes mellitus without complications (principal); I63.9 Cerebral infarction, unspecified; I87.2 Venous insufficiency (chronic) (peripheral); I69.398 Other sequelae of cerebral infarction; R20.9 Unspecified disturbances of skin sensation; I63.311 Cerebral infarction due to thrombosis of right middle cerebral artery; Q84.5 Enlarged and hypertrophic nails | CPT/HCPCS: 80053; 80061; 83036; 85025 ==

== ENCOUNTER 2024-05-31 10:43 | Emergency (ER) | payer MEDICARE, SELFPAY ==
--- NOTE | 2024-05-31 10:51 | XR_ITS ---
WS: [id number] Exam: XR chest 1V portable [id number] Date/Time of Exam: 05/31/2024 10:51 AM Reason For Exam: edema Comparison 12/13/2021. LEFT retrocardiac opacity noted likely representing infiltrate in the LEFT lower lobe. Moderate LEFT basal pleural effusion. The RIGHT lung is clear. No pneumothorax. Cardiomediastinal structures are un remarkable for technique. Bony elements are intact. XR/XR chest 1V portable [id number] IMPRESSION: 1. LEFT lower lobe infiltrate and/or atelectasis with LEFT basal pleural effus ion.
[2024-05-31 10:52] VITALS: PULSE 93; RESP 18; TEMP 36.7; O2SAT 91; BMI 39.5
[2024-05-31 10:58] VITALS: BP 175/65
--- NOTE | 2024-05-31 11:01 | W.ED.EXTPRO ---
HPI - Extremity Problem General: Chief complaint: Extremity Problem,Nontraumatic Stated complaint: Fluid build up Time Seen by Provider: 05/31/24 10:47 History of Present Illness: 83-year-old female with a history of hypertension, diabetes and anxiety who presents the emergency room with lower extremity swelling that has been worsening. Family says they think her face is even swollen at this point. She takes 20 mg of Lasix daily and has not increased this. She reports no orthopnea. No dyspnea. No redness. No pain. No chest pain. Related Data Home Medications Medication Instructions Recorded Confirmed aspirin 81 mg chewable tablet 81 mg PO DAILY 12/13/21 05/31/24 atorvastatin 20 mg tablet 20 mg PO DAILY 05/31/24 05/31/24 furosemide 20 mg tablet 20 mg PO BID 05/31/24 05/31/24 pioglitazone 30 mg tablet 30 mg PO DAILY 05/31/24 05/31/24 Previous Rx's Medication Instructions Recorded Adult Wheel Chair with wheels #1 ea 12/22/21 blood sugar diagnostic (FreeStyle #100 ea 05/04/22 Lite Strips) blood-glucose meter (FreeStyle #1 ea 05/04/22 Lite Meter kit) lancets 28 gauge (FreeStyle #100 ea 05/04/22 Lancets) amitriptyline 10 mg tablet 10 mg PO DAILY #90 tabs 08/09/23 potassium chloride 20 mEq 20 meq PO DAILY #90 tabs 08/09/23 tablet,extended release bisoprolol 10 1 tab PO DAILY #90 tabs 10/20/23 mg-hydrochlorothiazide 6.25 mg tablet prosthetic bra #3 ea 11/10/23 losartan 50 mg tablet 50 mg PO DAILY #90 tabs 12/12/23 perphenazine 2 mg tablet 2 mg PO DAILY #90 tabs 01/09/24 azithromycin 250 mg tablet See Rx Instructions PO .COMPLEX #6 05/31/24 (Zithromax Z-Bill) tabs furosemide 40 mg tablet (Lasix) 40 mg PO QAM 5 days #5 tabs 05/31/24 Allergies Allergy/AdvReac Type Severity Reaction Status Date / Time No Known Allergies Allergy Verified 08/09/23 11:28 Review of Systems Narrative: Constitutional symptoms: Negative except as documented in HPI. Skin symptoms: Negative except as documented in HPI. Eye symptoms: Negative except as documented in HPI. ENMT symptoms: Negative except as documented in HPI. Respiratory symptoms: Negative except as documented in HPI. Cardiovascular symptoms: Negative except as documented in HPI. Gastrointestinal symptoms: Negative except as documented in HPI. Genitourinary symptoms: Negative except as documented in HPI. Musculoskeletal symptoms: Negative except as documented in HPI. Neurologic symptoms: Negative except as documented in HPI. Psychiatric symptoms: Negative except as documented in HPI. Endocrine symptoms: Negative except as documented in HPI. PFS ED PFSH: Medical History (Updated 05/31/24 @ 13:31 by Renu Mohamud MD) Hypertension Anxiety Diabetes mellitus Surgical History History of mastectomy, total Family History Sister Breast cancer Social History Smoking and tobacco/nicotine status: never used tobacco/nicotine Alcohol intake: never Substance/Drug Use: never Physical Exam Narrative: EXAM NARRATIVE: General: Alert, no acute distress. Skin: Warm, dry. Head: Normocephalic, atraumatic. Neck: Supple, trachea midline. Eye: Extraocular movements are intact. Ears, nose, mouth and throat: mucosa moist. Cardiovascular: Regular, Normal peripheral perfusion. 2-3+ pitting edema the bilateral lower extremities. Some blistering. No redness. No pain Respiratory: Lungs are clear to auscultation, respirations are non-labored, breath sounds are equal, Symmetrical chest wall expansion. Gastrointestinal: Soft, Nontender, Non distended Musculoskeletal: Normal ROM, no deformity. Neurological: Alert and oriented, No focal neurological deficit observed. Psychiatric: Cooperative, appropriate mood & affect. Course Vital Signs: Vital signs: Vital Signs Temperature 98.0 F 05/31/24 10:52 Pulse Rate 75 05/31/24 14:17 Respiratory Rate 18 05/31/24 10:52 Blood Pressure 179/71 05/31/24 14:17 Pulse Oximetry 91 05/31/24 14:17 Oxygen Delivery Me thod Room Air 05/31/24 10:52 MDM - Extremity (Nontraumatic) Medical Decision Making Medical decision making: Differential diagnosis including but not limited to and based on the above HPI, review of systems and physical exam: for patient with edema: Congestive heart failure. Kidney failure. DVT / Pulmonary embolism. Protein malnutrition. Cirrhosis. EKG: Time 1123. Rate 77. Normal sinus rhythm, No ST-T changes, no ectopy, normal ND & QRS intervals, This was reviewed and interpreted by myself the ER physician at 1125. Chest x-ray: Effusion and atelectasis versus an infiltrate. This was reviewed and interpreted by myself the emergency room physician. I also reviewed the radiology report. CT of the chest without contrast: This is ordered secondary to abnormal chest x-ray. There is an effusion. Also some compressive atelectasis and possibly some infiltrate. Patient has no cough. No fever. No chest pain. Will place her on a Z-Bill for a few days. However I do not think this is a pneumonia. This was reviewed and interpreted by myself the emergency room physician. I also reviewed the radiology report. Orders placed to evaluate differential diagnosis based on the above differential, HPI and physical exam Lab Review: Laboratory results were reviewed and interpreted by myself the emergency room physician. White count is 6. Hemoglobin 12. BUN/creatinine slightly elevated at 24 and 1.3. This is at the top end of her baseline. In the past she has fluctuated between 0.9 and 1.3. proBNP is 1400 which is slightly elevated over baseline of 1000. I reviewed the patient's medical record. Reexamination: Patient remained stable. No increased work of breathing. No altered mental status. No focal motor deficits. Patient has had quite a bit of urine output since receiving Lasix. Assessment and plan: Edema Pleural effusion Pulmonary infiltrates ?No known congestive heart failure. We discussed at length mechanical measures to prevent swelling including decreasing fluid intake compression stockings and elevating legs. We will do a 5-day course of 40 mg in the a.m. and 20 mg at noon of her Lasix. I will also place her on some azithromycin in case she is developing a pneumonia. She does not have any of the symptoms but radiology was concerned. We discussed she needs to follow-up with her primary care physician in the near future and to return the emergency room if she does not improve or if she worsens - Discharged home - Discussed plan with patient. Answered any questions. - Evaluation and treatment of this problem were appropriate in the emergency setting. Lab Data 05/31/24 11:17 05/31/24 11:17 Radiology Impressions Chest X-Ray 05/31/24 10:51 IMPRESSION: 1. LEFT lower lobe infiltrate and/or atelectasis with LEFT basal pleural effusion. Chest CT 05/31/24 12:01 IMPRESSION: 1. Small LEFT pleural effusion with LEFT lower lobe compressive atelectasis with patchy infiltrates. Recommend correlation for pneumonia. 2. Slight atelectasis RIGHT lower lobe. 3. Cardiomegaly. Aortic calcification. 4. Partially visualized cholelithiasis. Laboratory Results WBC 5.98 10^3/uL (3.29-11.43) 05/31/24 11:17 RBC 3.33 10^6/uL (3.85-5.65) L 05/31/24 11:17 Hgb 11.70 g/dL (11.27-16.99) 05/31/24 11:17 Hct 36.2 % (36-47) 05/31/24 11:17 MCV 108.7 fl (85-98) H 05/31/24 11:17 MCH 35.1 pg (27-33) H 05/31/24 11:17 MCHC 32.3 g/dL (30-55) 05/31/24 11:17 RDW 14.0 % (12.1-15.1) 05/31/24 11:17 Plt Count 172 10^3/cmm (157-399) 05/31/24 11:17 MPV 12.1 fL (7.4-10.4) H 05/31/24 11:17 Neut % (Auto) 61.4 % 05/31/24 11:17 Lymph % (Auto) 27.8 % 05/31/24 11:17 [place] % (Auto) 6.5 % 05/31/24 11:17 Eos % (Auto) 3.3 % 05/31/24 11:17 Baso % (Auto) 0.8 % 05/31/24 11:17 Neut # (Auto) 3.67 10^3/uL (1.8-7.7) 05/31/24 11:17 Lymph # (Auto) 1.7 10^3/uL (0.8-4.8) 05/31/24 11:17 [place] # (Auto) 0.4 10^3/uL (0.2-0.9) 05/31/24 11:17 Eos # (Auto) 0.2 10^3/uL (0.0-0.8) 05/31/24 11:17 Baso # (Auto) 0.1 10^3/uL (0.0-0.1) 05/31/24 11:17 Nucleated RBC % (auto) 0 % 05/31/24 11:17 Nucleated RBCs # 0.0 /100WBC 05/31/24 11:17 Sodium 140 mmol/L (136-145) 05/31/24 11:17 Potassium 4.2 mmol/L (3.5-5.1) 05/31/24 11:17 Chloride 99 mmol/L (98-107) 05/31/24 11:17 Carbon Dioxide 31 mmol/L (22-29) H 05/31/24 11:17 Anion Gap 14.2 (5-19) 05/31/24 11:17 BUN 24 mg/dL (8-23) H 05/31/24 11:17 Creatinine 1.3 mg/dL (0.5-0.9) H 05/31/24 11:17 GFR Calculation Not Reportable 05/31/24 11:17 Glucose 179 mg/dL (65-115) H 05/31/24 11:17 Calculated Osmolality 299 mOsm/kg (285-295) H 05/31/24 11:17 Calcium 8.9 mg/dL (8.5-10.5) 05/31/24 11:17 Total Bilirubin 0.4 mg/dL (0.15-1.2) 05/31/24 11:17 AST 16 U/L (0-32) 05/31/24 11:17 ALT 10 U/L (0-33) 05/31/24 11:17 Alkaline Phosphatase 73 U/L (35-105) 05/31/24 11:17 NT-Pro-B Natriuret Pep 1492 pg/mL (0-450) H 05/31/24 11:17 Total Protein 6.4 g/dL (6.6-8.7) L 05/31/24 11:17 Albumin 3.9 g/dL (3.5-5.2) 05/31/24 11:17 Globulin 2.5 g/dL (1.3-4.6) 05/31/24 11:17 All radiology interpretation(s) finalized by discharge Discharge Plan Discharge Patient Disposition: Home Clinical Impression: Edema Condition: Stable Prescriptions: New furosemide [Lasix] 40 mg tablet 40 mg PO QAM 5 Days Qty: 5 0RF azithromycin [Zithromax Z-Bill] 250 mg tablet See Rx Instructions .ROUTE .COMPLEX Qty: 6 0RF Rx Instructions: For 250 mg dose pack: take 500 mg today (day 1), then 250 mg for 4 days (days 2-5) No Action (DME) Adult Wheel Chair with wheels See Rx Instructions .Route .MEDSUPPLY Qty: 1 0RF Rx Instructions: As directed amitriptyline 10 mg tablet 10 mg PO DAILY Qty: 90 3RF potassium chloride 20 mEq tablet extended release 20 meq PO DAILY Qty: 90 2RF (DME) blood-glucose meter [FreeStyle Lite Meter] Kit See Rx Instructions .Route Qty: 1 0RF Rx Instructions: to use once daily to check blood sugar (DME) FreeStyle Lite Strips Strip See Rx Instructions .Route Qty: 100 3RF Rx Instructions: to use once daily in Freestyle meter 90 day supply (DME) lancets [FreeStyle Lancets] 28 gauge misc See Rx Instructions .Route Qty: 100 3RF Rx Instructions: to use once daily to check blood sugar 90 day supply bisoprolol-hydrochlorothiazide 10-6.25 mg tablet 1 tab PO DAILY Qty: 90 3RF (DME) prosthetic bra See Rx Instructions .Route .MEDSUPPLY Qty: 3 0RF Rx Instructions: As directed losartan 50 mg tablet 50 mg PO DAILY Qty: 90 3RF perphenazine 2 mg tablet 2 mg PO DAILY Qty: 90 3RF aspirin 81 mg Tablet,Chewable 81 mg PO DAILY atorvastatin 20 mg tablet 20 mg PO DAILY furosemide 20 mg tablet 20 mg PO BID pioglitazone 30 mg tablet 30 mg PO DAILY Discharge Orders: Discharge ED (Routine); Ordered 05/31/24 Ordered By: Renu Mohamud Referrals: Nahomy Navas MD [Primary Care Provider] - 4-7 days (Please call for an appointment for early next week.) Discharge Diet: Usual diet Discharge Activity: Resume usual activity Patient Instructions: Edema (ED) Activity Restrictions/Additional Instructions: Take the 40 mg of Lasix in the morning that was written for the next 5 days and then take 20 at noon. Thank you for choosing [facility] for your healthcare needs today. Please realize this is an emergency room and that we are providing you with a medical screening exam and this may not be complete and all inclusive of all the testing and or work up that you may need to determine your ailment or severity of your illness. You have been screened and evaluated and felt safe for discharge. Health conditions do change or evolve sometimes and as such it is important that you follow up with your Primary Doctor to be re checked, 3-5 days is a general good time frame for follow up. You are always welcome to return to the ED for re assessment if your symptoms are worsening or you have new concerns Coding Level of Care Code ED Television Production Technician for Pablo Bowles
--- NOTE | 2024-05-31 11:23 | ECG_ITS ---
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 Measurements Intervals [place] Rate: 77 P: -37 MA: 111 QRS: 4 QRSD: 91 T: 44 QT: 406 QTc: 460 Interpretive Statements SINUS RHYTHM WITH SHORT MA INTERVAL Compared to ECG 12/14/2021 01:29:48 Short MA interval now present Electronically Signed On 05-31-2024 22:57:08 CDT by Jessica Caban M.D. [email or web address]
[2024-05-31 11:25] LABS: Basophils # 0.1 10^3/uL (0.0-0.1); Basophils % 0.8 %; Eosinophils # 0.2 10^3/uL (0.0-0.8); Eosinophils % 3.3 %; Hematocrit 36.2 % (36-47); Lymphocytes # 1.7 10^3/uL (0.8-4.8); Lymphocytes % 27.8 %; Mean Corpuscular HGB Conc 32.3 g/dL (30-55); Mean Corpuscular Hemoglobin 35.1 pg (27-33); Mean Corpuscular Volume 108.7 fl (85-98); Mean Platelet Volume 12.1 fL (7.4-10.4); Monocytes # 0.4 10^3/uL (0.2-0.9); Monocytes % 6.5 %; Neutrophils # 3.67 10^3/uL (1.8-7.7); Neutrophils % 61.4 %; Nucleated Red Blood Cells % 0 %; Platelet Count 172 10^3/cmm (157-399); Red Blood Count 3.33 10^6/uL (3.85-5.65); White Blood Count 5.98 10^3/uL (3.29-11.43)
[2024-05-31 11:52] LABS: Alanine Aminotransferase 10 U/L (0-33); Albumin Level 3.9 g/dL (3.5-5.2); Alkaline Phosphatase 73 U/L (35-105); Anion Gap 14.2 (5-19); Aspartate Amino Transferase 16 U/L (0-32); Blood Urea Nitrogen 24 mg/dL (8-23); Calcium 8.9 mg/dL (8.5-10.5); Carbon Dioxide 31 mmol/L (22-29); Chloride 99 mmol/L (98-107); Creatinine Clr Calc Pharmacy 45.8174; Globulin 2.5 g/dL (1.3-4.6); Glucose 179 mg/dL (65-115); NT Pro B Type Natriuretic Pept 1492 pg/mL (0-450); Osmolality Calculated 299 mOsm/kg (285-295); Potassium 4.2 mmol/L (3.5-5.1); Sodium 140 mmol/L (136-145); Total Bilirubin 0.4 mg/dL (0.15-1.2); Total Protein 6.4 g/dL (6.6-8.7)
--- NOTE | 2024-05-31 12:01 | CT_ITS ---
WS: [id number] CT CHEST TECHNIQUE: Noncontrast CT of the chest with coronal and sagittal reformatted images. CLINICAL INFORMATION: abnormal chest xray COMPARISON: None. DLP: 596.[address] scans at [facility] use at least one of these dose optimization techniques: automated e xposure control; mA and/or kV adjustment per patient size (includes targeted exams where dose is matc hed to clinical indication); or iterative reconstruction. FINDINGS: Aortic calcification. Coronary calcification. Cardiomegaly. Few slightly prominent anterior mediastin al lymph nodes likely reactive. Small LEFT pleural effusion with patchy infiltrates and atelectasis L EFT lower lobe. Recommend correlation for pneumonia. Slight RIGHT basilar atelectasis. Cholelithiasis . Adrenal glands are normal. Slightly ectatic ascending thoracic aorta measuring 3.6 cm. Partially visualized nodular RIGHT breast tissue. Recommend RIGHT breast diagnostic mammography. Evid ence of prior LEFT mastectomy. CT/CT chest wo con [id number] IMPRESSION: 1. Small LEFT pleural effusion with LEFT lower lobe compressive atelectasis wi th patchy infiltrates. Recommend correlation for pneumonia. 2. Slight atelectasis RIGHT lower lobe. 3. Cardiomegaly. Aortic calcification. 4. Partially visualized cholelithiasis.
[2024-05-31] MEDS: FUROsemide 10 mg/mL SDV 4mL 40 MG IVP (12:08)
[2024-05-31 14:17] VITALS: BP 179/71; PULSE 75; O2SAT 91
== END 2024-05-31 14:18 | disposition home or self-care (01) ==
PROVIDERS: Emergency Provider Emergency Medicine; PCP Family Medicine
DX: R60.9 Edema, unspecified (principal); Z79.899 Other long term (current) drug therapy
CPT/HCPCS: 36415; 71045; 71250; 80053; 83880; 85025; 93005; 96374; 99285; J1940

== ENCOUNTER → 2024-11-05 11:05 | Outpatient (BNVA) | payer MEDICARE, SELFPAY | PROVIDERS: PCP Family Medicine; Visit Provider Family Medicine | DX: I10 Essential (primary) hypertension (principal); E11.9 Type 2 diabetes mellitus without complications | CPT/HCPCS: 80053; 80061; 83036; 85025 ==